=== PATIENT | male | born 1980 | race Caucasian/White ===

== ENCOUNTER 2019-05-26 12:11 | Emergency (ER) | payer SELFPAY ==
[2019-05-26 12:16] VITALS: BMI 22.1
--- NOTE | 2019-05-26 12:16 | ED_ITS ---
HPI - Psych General: Chief Complaint: Psychiatric Symptoms Stated Complaint: SI Time Seen by Provider: 05/26/19 12:14 Source: patient Mode of arrival: other (police) Limitations: no limitations History of Present Illness: HPI Narrative: Patient is a 38-year-old male who presents to ED today in police custody after making suicidal statements. Patient was in court due to contempt of court and apparently became upset and made statements that he wanted to go home and blow his head off . Upon arrival patient tells me he is not suicidal and made those statements in anger. He reports no previous suicide attempts. He denies homicidal ideations. Denies hallucinations. MD complaint: suicidal ideation Onset (ago): hour(s) Duration: resolved prior to arrival History of same: No Relieving factors: none Exacerbating factors: other (angry in court) Associated psychiatric symptoms: none Associated symptoms: Reports no associated symptoms; Deny auditory hallucinations, visual hallucinations, depression, homicidal ideation or suicidal ideation Treatments prior to arrival: none Review of Systems Const: Denies: fever or chills Card: Denies: chest pain, palpitations, lightheadedness or syncope Resp: Denies: shortness of breath GI: Denies: abdominal pain, nausea, vomiting or diarrhea Skin/Breast: Denies: rash Neuro: Denies: headache Psych: Denies: anxiety, depression, panic attacks, hopelessness, loss of interest, visual hallucinations, auditory hallucinations, suicidal ideation or homicidal ideation [facility] ED PFSH: Social History Smoking and tobacco status: current every day smoker Physical Exam Const: COMMON NORMALS: no apparent distress, oriented x3, alert and well nourished GENERAL APPEARANCE: cooperative and well kempt Resp: COMMON NORMALS: normal respiratory effort and clear to auscultation bilaterally AUSCULTATION: clear to auscultation bilaterally Cardio: COMMON NORMALS: regular rate and regular rhythm RATE: regular rate RHYTHM: regular rhythm Neuro: [place] COMA SCALE: document GCS findings [place] coma scale eye opening: Spontaneous [place] coma scale verbal response: Orientated [place] coma scale motor response: Obey commands [place] coma scale total score: 15 COMMON NORMALS: oriented x3 SENSORIUM/ORIENTATION: Yes alert Psych: COMMON NORMALS: mental status grossly normal, thought process normal, cooperative (slightly agitated ), affect normal, speech normal and activity/motor behavior normal APPEARANCE: Yes well kempt ACTIVITY/MOTOR BEHAVIOR: Yes appropriate eye contact and No psychomotor agitation SPEECH: Yes normal speech THOUGHT PROCESS: normal thought process MEMORY/COGNITION: Yes memory grossly intact and Yes cognition grossly intact INSIGHT: insight good JUDGEMENT: fair MDM - Psych MDM Narrative: Medical decision making narrative: Dr. Walls evaluated patient in the emergency department and agrees that patient is not suicidal and is stable for discharge. Lab Data: Labs: Lab Results 05/26/19 05/26/19 Range/Units 12:40 12:40 WBC 5.5 (4.0-10.0) 10^3/ uL RBC 5.18 (4.1-5.3) 10^6/u L Hgb 15.0 (11.7-16.6) g/dL Hct 45.2 (42.0-52.0) % MCV 87.3 (80-94) fL MCH 29.0 (28.0-34.0) pg MCHC 33.2 (30.0-36.0) g/dL RDW 12.7 (12.1-15.1) % Plt Count 292 (130-400) 10^3/c mm MPV 8.9 (7.4-10.4) fL Neut % (Auto) 59.3 % Lymph % (Auto) 28.6 % [place] % (Auto) 7.8 % Eos % (Auto) 2.7 % Baso % (Auto) 1.4 % Neut # (Auto) 3.3 (1.8-7.7) 10^3/u L Lymph # (Auto) 1.6 (0.8-4.8) 10^3/u L [place] # (Auto) 0.4 (0.2-0.9) 10^3/u L Eos # (Auto) 0.2 (0.0-0.8) 10^3/u L Baso # (Auto) 0.1 (0.0-0.1) 10^3/u L Nucleated RBC % (a uto) 0 % Nucleated RBCs # 0.0 /100WBC Sodium 133 L (136-145) mmol/L Potassium 4.5 (3.5-5.1) mmol/L Chloride 98 (98-107) mmol/L Carbon Dioxide 25 (22-29) mmol/L Anion Gap 14.5 (5-19) BUN 13 (6-20) mg/dL Creatinine 0.8 (0.7-1.2) mg/dL GFR Calculation 108.8 (90-130) mL/min Glucose 91 (65-115) mg/dL Calcium 9.9 (8.5-10.5) mg/dL Total Bilirubin 0.6 (0.15-1.2) mg/dL AST 23 (0-40) U/L ALT 16 (0-41) U/L Alkaline Phosphata se 73 (40-130) IU/L Total Protein 7.1 (6.6-8.7) g/dL Albumin 4.6 (3.5-5.2) g/dL Globulin 2.5 (1.3-4.6) g/dL Discharge Plan Discharge Patient Disposition: Home, Self-Care Clinical Impression: Agitation Condition: Stable Prescriptions: No Action No Known Home Medications RF: 0 Discharge Orders: Discharge Order (Routine); Ordered 05/26/19 Ordered By: Stephenie Garcia Discharge Diet: Usual diet Discharge Activity: Resume usual activity Discharge Date/Time: 05/26/19 13:14 Coding Level of Care Code ED Asset Specialist for Chg Fwd Exam Detailed
[2019-05-26 12:28] VITALS: BP 93/77; PULSE 90; RESP 20; TEMP 36.7; O2SAT 98
[2019-05-26 12:50] LABS: Basophils # 0.1 10^3/uL (0.0-0.1); Basophils % 1.4 %; Eosinophils # 0.2 10^3/uL (0.0-0.8); Eosinophils % 2.7 %; Hematocrit 45.2 % (42.0-52.0); Lymphocytes # 1.6 10^3/uL (0.8-4.8); Lymphocytes % 28.6 %; Mean Corpuscular HGB Conc 33.2 g/dL (30.0-36.0); Mean Corpuscular Volume 87.3 fL (80-94); Mean Platelet Volume 8.9 fL (7.4-10.4); Monocytes # 0.4 10^3/uL (0.2-0.9); Monocytes % 7.8 %; Neutrophils # 3.3 10^3/uL (1.8-7.7); Neutrophils % 59.3 %; Nucleated Red Blood Cells % 0 %; Platelet Count 292 10^3/cmm (130-400); Red Blood Count 5.18 10^6/uL (4.1-5.3); Red Cell Distribution Width 12.7 % (12.1-15.1); White Blood Count 5.5 10^3/uL (4.0-10.0)
[2019-05-26 13:03] LABS: Alanine Aminotransferase 16 U/L (0-41); Albumin Level 4.6 g/dL (3.5-5.2); Alkaline Phosphatase 73 IU/L (40-130); Anion Gap 14.5 (5-19); Aspartate Amino Transferase 23 U/L (0-40); Blood Urea Nitrogen 13 mg/dL (6-20); Calcium 9.9 mg/dL (8.5-10.5); Carbon Dioxide 25 mmol/L (22-29); Chloride 98 mmol/L (98-107); Globulin 2.5 g/dL (1.3-4.6); Glomerular Filtration Rate 108.8 mL/min (90-130); Glucose 91 mg/dL (65-115); Potassium 4.5 mmol/L (3.5-5.1); Sodium 133 mmol/L (136-145); Total Bilirubin 0.6 mg/dL (0.15-1.2); Total Protein 7.1 g/dL (6.6-8.7)
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
[2019-05-26 13:44] LABS: Acetaminophen < 5.0 ug/mL (10-30); Alcohol Level < 10 mg/dL (0-10); Salicylate < 0.3 mg/dL (3-10)
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
== END 2019-05-26 13:14 | disposition home or self-care (01) ==
PROVIDERS: Emergency Provider Physician Assistant
DX: R45.1 Restlessness and agitation (principal); F17.200 Nicotine dependence, unspecified, uncomplicated; R40.2412 Glasgow coma scale score 13-15, at arrival to emergency department
CPT/HCPCS: 12345; 36415; 80053; 80307; 85025; 99284

== ENCOUNTER 2019-09-09 16:25 | Emergency (ER) | payer SELFPAY ==
[2019-09-09 16:28] VITALS: BP 95/70; PULSE 74; RESP 18; TEMP 36.7; O2SAT 97; BMI 22.1
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
[2019-09-09 16:36] VITALS: PULSE 69; RESP 18; O2SAT 97
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
[2019-09-09 16:46] VITALS: RESP 20; O2SAT 99
[2019-09-09] MEDS: morphine 4 mg/mL SDV 1 mL IVP ×2 (16:46→17:39)
[2019-09-09] MEDS: ondansetron 2 mg/ML SDV 2 mL 4 MG IVP (16:46)
[2019-09-09] MEDS: sodium chloride 0.9% 1,000 ML 999 ML IV (17:16)
[2019-09-09 17:39] VITALS: RESP 18; O2SAT 100
[2019-09-09] MEDS: ketorolac 30 mg/mL INJ 15 MG IVP (17:39)
[2019-09-09] MEDS: neomycin-poly-bacitracin oint 0.9 gm Pkt 3 APPLIC TOPICAL (17:40)
[2019-09-09 18:07] VITALS: BP 107/76; PULSE 73; RESP 16; O2SAT 100
--- NOTE | 2019-09-12 11:57 | DCPLANNER ---
janitorial account manager had message to schedule a follow up appointment for patient with ortho. janitorial account manager called the ortho clinic, spoke with Lizy, gave clinic patients information. janitorial account manager was told that patients information would be printed and reviewed. Clinic will call case work aide and patient with appointment information.
--- NOTE | 2019-09-20 10:23 | DCPLANNER ---
Patient had an appointment scheduled with ortho for 09.15.19, patient did not attend the appointment.
== END 2019-09-09 18:07 | disposition home or self-care (01) ==
PROVIDERS: Emergency Provider Emergency Medicine
DX: S43.401A Unspecified sprain of right shoulder joint, initial encounter (principal); T14.8XXA Other injury of unspecified body region, initial encounter; V86.56XA Driver of dirt bike or motor/cross bike injured in nontraffic accident, initial encounter; F17.210 Nicotine dependence, cigarettes, uncomplicated
CPT/HCPCS: 12345; 71045; 73060; 73502; 96374; 96375; 96376; 99282; 99284; J1885; J2270; J2405; J7030

== ENCOUNTER 2019-12-16 23:13 | Emergency (ER) | payer SELFPAY ==
[2019-12-16 23:21] VITALS: BP 124/75; PULSE 92; RESP 20; TEMP 36.7; O2SAT 98; BMI 22.8
[2019-12-16 23:35] VITALS: BP 94/59; PULSE 88; RESP 17; O2SAT 95
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
[2019-12-16 23:44] VITALS: RESP 16
[2019-12-16] MEDS: morphine 4 mg/mL SDV 1 mL IVP (23:44)
[2019-12-16] MEDS: ondansetron 2 mg/ML SDV 2 mL 4 MG IVP (23:45)
[2019-12-16] MEDS: haloperidol inj 5 mg/mL INJ 1 mL IVP (23:56)
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
[2019-12-17 00:02] LABS: Basophils # 0.1 10^3/uL (0.0-0.1); Basophils % 1.1 %; Eosinophils # 0.2 10^3/uL (0.0-0.8); Eosinophils % 3.5 %; Hematocrit 45.7 % (42.0-52.0); Hemoglobin 15.3 g/dL (11.7-16.6); Lymphocytes # 1.9 10^3/uL (0.8-4.8); Lymphocytes % 28.1 %; Mean Corpuscular HGB Conc 33.5 g/dL (30.0-36.0); Mean Corpuscular Hemoglobin 30.7 pg (28.0-34.0); Mean Corpuscular Volume 91.6 fL (80-94); Monocytes # 0.6 10^3/uL (0.2-0.9); Monocytes % 9.3 %; Neutrophils # 3.81 10^3/uL (1.8-7.7); Neutrophils % 57.7 %; Nucleated Red Blood Cells % 0 %; Platelet Count 274 10^3/cmm (130-400); Red Blood Count 4.99 10^6/uL (4.1-5.3); Red Cell Distribution Width 13.1 % (12.1-15.1); White Blood Count 6.6 10^3/uL (4.0-10.0)
--- NOTE | 2019-12-17 00:04 | PC.NURSE ---
pt appears to be altered. admitted to MD that he had been drinking. pt id restless and easliy aggitated.
[2019-12-17] MEDS: haloperidol inj 5 mg/mL INJ 1 mL 2.5 MG IVP (00:09)
[2019-12-17 00:11] VITALS: BP 122/80; PULSE 82; RESP 14; O2SAT 94
[2019-12-17 00:21] LABS: Alanine Aminotransferase 16 U/L (0-41); Albumin Level 4.7 g/dL (3.5-5.2); Alkaline Phosphatase 92 IU/L (40-130); Anion Gap 15.9 (5-19); Aspartate Amino Transferase 22 U/L (0-40); Blood Urea Nitrogen 13 mg/dL (6-20); Calcium 8.7 mg/dL (8.5-10.5); Carbon Dioxide 26 mmol/L (22-29); Chloride 104 mmol/L (98-107); Globulin 2.3 g/dL (1.3-4.6); Glomerular Filtration Rate 108.2 mL/min (90-130); Glucose 116 mg/dL (65-115); Osmolality Calculated 291 mOsm/kg (285-295); Potassium 3.9 mmol/L (3.5-5.1); Sodium 142 mmol/L (136-145); Total Bilirubin 0.2 mg/dL (0.15-1.2)
[2019-12-17] MEDS: sodium chloride 0.9% 1,000 ML 999 ML IV (04:30)
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
[2019-12-17] MEDS: atropine 0.1 mg/mL Syr 10 mL 0.5 MG IVP (04:50)
--- NOTE | 2019-12-17 04:54 | ECG_ITS ---
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 Measurements Intervals [place] Rate: 72 P: 85 RI: 135 QRS: 81 QRSD: 97 T: 68 QT: 368 QTc: 404 Interpretive Statements SINUS RHYTHM INDETERMINATE AXIS INCOMPLETE RIGHT BUNDLE BRANCH BLOCK [90+ ms QRS DURATION, TERMINAL R IN V1/V2, 40+ ms S IN I/aVL/V4/V5/V6] Compared to ECG 12/02/2017 21:07:29 Indeterminate axis now present Incomplete right bundle-branch block now present Sinus bradycardia no longer present Electronically Signed On 12-17-2019 16:21:10 CDT by Joya Holley M.D. [id number]
[2019-12-17 05:29] VITALS: BP 114/90; PULSE 57; RESP 13; O2SAT 99
[2019-12-17 05:41] LABS: Alcohol Level 186 mg/dL (0-10)
[2019-12-17 05:59] VITALS: BP 104/78; PULSE 60; RESP 13; O2SAT 99
[2019-12-17 06:29] VITALS: BP 109/74; PULSE 74; RESP 14; O2SAT 98
[2019-12-17 06:45] VITALS: BP 109/74; O2SAT 94
== END 2019-12-17 06:46 | disposition home or self-care (01) ==
PROVIDERS: Emergency Medicine; Emergency Provider Family Medicine
DX: S12.390A Other displaced fracture of fourth cervical vertebra, initial encounter for closed fracture (principal); F10.129 Alcohol abuse with intoxication, unspecified; Y90.6 Blood alcohol level of 120-199 mg/100 ml; F17.210 Nicotine dependence, cigarettes, uncomplicated; V29.9XXA Motorcycle rider (driver) (passenger) injured in unspecified traffic accident, initial encounter
CPT/HCPCS: 12345; 70450; 70486; 71260; 72125; 72128; 72131; 73030; 74177; 80053; 80307; 85025; 93005; 96361; 96374; 96375; 99283; 99284; J0131; J0461; J1630; J2270; J2405; J7030; Q9967

== ENCOUNTER 2020-04-03 01:53 | Emergency (ER) | payer SELFPAY ==
[2020-04-03 01:59] VITALS: BP 133/80; PULSE 97; RESP 18; TEMP 36.8; O2SAT 99; BMI 21.4
--- NOTE | 2020-04-03 03:30 | XR_ITS ---
WS: [id number] Comparison 08/25/2014. No acute fracture or dislocation. Old fracture deformity of the fifth metacarpal. No soft tissue fore ign bodies are seen. XR/XR hand RT min 3V* [id number] IMPRESSION: 1. No acute fracture or dislocation.
[2020-04-03] MEDS: HYDROcodone-acetaminophen 5-325 mg Tablet 1 TAB PO (03:40)
--- NOTE | 2020-04-03 03:59 | W.ED.SKABFB ---
HPI - Skin/Abscess/Foreign Bdy General: Chief complaint: Skin/Abscess/Foreign Body Stated complaint: swollen rt hand Time Seen by Provider: 04/03/20 03:16 Source: patient Mode of arrival: ambulatory Limitations: no limitations History of Present Illness: HPI narrative: 39-year-old male states he said pain to his right hand over the last day. He states he noticed his source last abscess to the dorsum of his right hand. States pain is sharp in nature and rates it a 7 out of 10. Denies any injuries. He has had abscesses in the past. Denies any fever. Associated symptoms: Deny chills, fever(s), nausea or vomiting Review of Systems Const: Denies: fever(s), chills, body aches or change in appetite Eyes: Denies: blurry vision or eye discomfort ENMT: Denies: throat pain or dental pain Card: Denies: chest pain Resp: Denies: dyspnea GI: Denies: abdominal pain, nausea, vomiting or diarrhea : Denies: dysuria Musc: Reports: extremity pain; Denies: neck pain or back pain Skin/Breast: Reports: sores Neuro: Denies: headache(s) Psych: Denies: depression Fausto/Lymph: Denies: easy bruising All/Imm: Denies: urticaria PFSH ED PFSH: Medical History (Updated 04/03/20 @ 03:59 by Tobias Mills MD) No pertinent past medical history Surgical History No pertinent past surgical history Social History Smoking and tobacco status: current every day smoker Physical Exam Const: COMMON NORMALS: no acute distress, patient oriented x3 and healthy appearing HENMT: COMMON NORMALS: normocephalic and atraumatic HEAD & SCALP: normocephalic and atraumatic Eye: COMMON NORMALS: Equal, round and reactive pupils present and EOMs intact bilaterally PUPIL: Yes Equal, round and reactive pupils present Neck/C-Spine: COMMON NORMALS: full ROM and supple Chest: COMMONS NORMALS: normal inspection of the chest and normal palpation of entire chest wall Resp: COMMON NORMALS: normal respiratory effort, No retractions, No use of accessory muscles and clear to auscultation bilaterally AUSCULTATION: clear to auscultation bilaterally Cardio: COMMON NORMALS: regular rate, regular rhythm and No murmurs present (Cardio) RATE: regular rate RHYTHM: regular rhythm GI: COMMON NORMALS: Normal to inspection, nondistended, normoactive bowel sounds present, Soft to palpation, non-tender and no masses PALPATION: Yes Soft to palpation Extremity: COMMON NORMALS: normal to inspection and full ROM Neuro: COMMON NORMALS: patient oriented x3, moves all extremities and no focal motor deficits Psych: COMMON NORMALS: mental status grossly normal, Normal thought process present and cooperative THOUGHT PROCESS: Normal thought process present Skin: NARRATIVE SKIN EXAM: Small abscess over the ulnar portion of the dorsum of the right hand minimal cellulitis Procedures Abscess I/D Site: hand Side (if applicable): right Local Anesthetic: lidocaine 1% Amount of anesthesia used (mL): 5 Technique: incised with #11 blade Packing used?: none Course Vital Signs: Vital signs: Vital Signs Temperature 98.2 F 04/03/20 01:59 Pulse Rate 97 04/03/20 01:59 Respiratory Rate 18 04/03/20 01:59 Blood Pressure 133/80 04/03/20 01:59 Pulse Oximetry 99 04/03/20 01:59 MDM - Skin/Abscess/Foreign Bdy MDM Narrative: Medical decision making narrative: Patient presents here with an abscess to the dorsum of his right hand. He has no signs of severe cellulitis or fever. X-ray shows no fracture. Incise and drain the abscess and placed him on Keflex and Bactrim. He is to return in 24 hours for wound check and return if any worsening. He understands agrees to plan. Imaging Data^: X-ray right hand: Attestation: I personally reviewed and interpreted this imaging study as follows: My impression: No acute fracture Discharge Plan Discharge Patient Disposition: Home Clinical Impression: Abscess of skin or subcutaneous tissue Qualifiers: Site of cutaneous abscess: extremity Site of cutaneous abscess of extremity: hand Laterality: right Qualified Code(s): L02.511 - Cutaneous abscess of right hand Condition: Stable Prescriptions: [place] 5-325 mg tablet 1 tab PO Q6H PRN (Reason: pain) Qty: 14 RF: 0 Bactrim DS 800-160 mg tablet 1 tab PO BID 10 Days Qty: 20 RF: 0 Keflex 500 mg capsule 500 mg PO Q6H 7 Days Qty: 28 RF: 0 No Action hydrocodone-acetaminophen 5-325 mg tablet 1 tab PO Q6H PRN (Reason: pain) Qty: 14 RF: 0 hydrocodone-acetaminophen 5-325 mg tablet 1 tab PO Q6H PRN (Reason: pain) Qty: 14 RF: 0 Discharge Orders: Discharge ED (Routine); Ordered 04/03/20 Ordered By: Tobias Mills Discharge Diet: Advance as tolerated Discharge Activity: Resume usual activity Patient Instructions: Abscess (ED) Coding Level of Care Code ED Paper Sales Representative for Marietta Cobb
[2020-04-03 04:13] VITALS: BP 132/78; PULSE 88; RESP 16; O2SAT 98
--- NOTE | 2020-04-03 04:15 | PC.NURSE ---
Placed telfa small to right hand to incision that dr made to allow for drainage. Wrapped hand with kerlex 2 inch all smcs intact prior and post procedure.
[2020-04-03] MEDS: cephALEXin 500 mg Capsule PO (04:18)
[2020-04-03] MEDS: sulfamethoxazole-trimeth DS 160-800 mg Tablet 1 TAB PO (04:18)
== END 2020-04-03 04:19 | disposition home or self-care (01) ==
PROVIDERS: Emergency Provider Emergency Medicine
DX: L02.511 Cutaneous abscess of right hand (principal); F17.210 Nicotine dependence, cigarettes, uncomplicated
CPT/HCPCS: 10060; 12345; 73130; 99281; 99283

== ENCOUNTER 2020-09-15 04:25 | Inpatient (IN) | payer SELFPAY ==
[2020-09-15 04:26] VITALS: BP 112/72; PULSE 85; RESP 24; TEMP 36.1; O2SAT 100; BMI 22.1
--- NOTE | 2020-09-15 04:29 | ED_ITS ---
HPI - Alcohol General: Chief Complaint: Alcohol Stated Complaint: Alcohol Intoxication Time Seen by Provider: 09/15/20 04:28 Source: EMS Mode of arrival: EMS Limitations: altered mental status History of Present Illness: HPI narrative: 40-year-old male admitted to EMS of drinking very heavily tonight and was found by police slumped over in his vehicle. They called EMS due to his intoxication. Patient here is very intoxicated and he will awake but he will not answer any my questions. He has not made any homicidal or suicidal statements. Unable to get any history from patient. MD complaint: alcohol intoxication Review of Systems General: Reports: ROS unobtainable due to mental status [facility] ED PFSH: Medical History (Updated 09/15/20 @ 05:16 by Tobias Mills MD) No pertinent past medical history Surgical History No pertinent past surgical history Social History Smoking and tobacco status: current every day smoker Physical Exam Const: COMMON NORMALS: negative for patient oriented x3 GENERAL APPEARANCE: disheveled and odor of alcohol detected HENMT: COMMON NORMALS: normocephalic and atraumatic HEAD & SCALP: normocephalic and atraumatic Eye: COMMON NORMALS: Equal, round and reactive pupils present and EOMs intact bilaterally PUPIL: Yes Equal, round and reactive pupils present Neck/C-Spine: COMMON NORMALS: full ROM and supple Chest: COMMONS NORMALS: normal inspection of the chest and normal palpation of entire chest wall Resp: COMMON NORMALS: normal respiratory effort, No retractions, No use of accessory muscles and clear to auscultation bilaterally AUSCULTATION: clear to auscultation bilaterally Cardio: COMMON NORMALS: regular rate, regular rhythm and No murmurs present (Cardio) RATE: regular rate RHYTHM: regular rhythm GI: COMMON NORMALS: Normal to inspection, nondistended, normoactive bowel sounds present, Soft to palpation, non-tender and no masses PALPATION: Yes Soft to palpation Extremity: COMMON NORMALS: normal to inspection and full ROM Neuro: COMMON NORMALS: moves all extremities and no focal motor deficits; negative for patient oriented x3 SENSORIUM/ORIENTATION: Yes Orientation impaired Psych: COMMON NORMALS: cooperative; negative for mental status grossly normal Skin: COMMON NORMALS: no rashes or lesions noted and no wounds GENERAL SKIN EXAM: no rashes or lesions noted Course Reevaluation(s): Reevaluation #1: After IV placement patient woke up analysis angry replaced IV and ripped his own IV out. He is denying any other treatment at this time. He is able to ambulate answer my questions appropriately. He now states that he also wants to kill himself. He states he is homeless and has nowhere to go and that he did go get his AR 15 and shoot himself. Be able to talk to him and de-escalate and have him calm down. He did throw a cup of water at a nursing please were called. But at this time he is calm and cooperative Time: 04:45 Vital Signs: Vital signs: Vital Signs Temperature 97.0 F L 09/15/20 04:26 Pulse Rate 85 09/15/20 04:26 Respiratory Rate 24 H 09/15/20 04:26 Blood Pressure 112/72 09/15/20 04:26 Pulse Oximetry 100 09/15/20 04:26 MDM - Alcohol MDM Narrative: Medical decision making narrative: Body presents here with alcohol intoxication likely drug abuse and suicidality. Patient was initially agitated here but he is now calm and cooperative after verbal de-escalation. Patient is medically cleared I placed him under 96-hour hold for suicidal statements. Spoke to psychiatrist and will admit. Lab Data: Labs: Lab Results 09/15/20 09/15/20 Range/Units 04:32 04:32 WBC 8.1 (4.0-10.0) 10^3/ uL RBC 4.87 (4.1-5.3) 10^6/u L Hgb 15.0 (11.7-16.6) g/dL Hct 43.7 (42.0-52.0) % MCV 89.7 (80-94) fL MCH 30.8 (28.0-34.0) pg MCHC 34.3 (30.0-36.0) g/dL RDW 12.8 (12.1-15.1) % Plt Count 267 (130-400) 10^3/c mm MPV 9.1 (7.4-10.4) fL Neut % (Auto) 66.9 % Lymph % (Auto) 24.4 % [place] % (Auto) 6.1 % Eos % (Auto) 0.7 % Baso % (Auto) 1.5 % Neut # (Auto) 5.44 (1.8-7.7) 10^3/u L Lymph # (Auto) 2.0 (0.8-4.8) 10^3/u L [facility] [place] # (Auto) 0.5 (0.2-0.9) 10^3/u L Eos # (Auto) 0.1 (0.0-0.8) 10^3/u L Baso # (Auto) 0.1 (0.0-0.1) 10^3/u L Nucleated RBC % (a uto) 0 % Nucleated RBCs # 0.0 /100WBC Sodium 142 (136-145) mmol/L Potassium 3.4 L (3.5-5.1) mmol/L Chloride 103 (98-107) mmol/L Carbon Dioxide 22 (22-29) mmol/L Anion Gap 20.4 H (5-19) BUN 13 (6-20) mg/dL Creatinine 0.8 (0.7-1.2) mg/dL GFR Calculation 107.6 (90-130) mL/min Glucose 120 H (65-115) mg/dL Calculated Osmolal ity 295 (285-295) mOsm/k g Calcium 8.6 (8.5-10.5) mg/dL Total Bilirubin 0.3 (0.15-1.2) mg/dL AST 22 (0-40) U/L ALT 19 (0-41) U/L Alkaline Phosphata se 78 (40-130) IU/L Total Protein 6.6 (6.6-8.7) g/dL Albumin 4.7 (3.5-5.2) g/dL Globulin 1.9 (1.3-4.6) g/dL Salicylates < 0.3 L (3-10) mg/dL Acetaminophen < 5.0 L (10-30) ug/mL Ethyl Alcohol 109 H (0-10) mg/dL Discharge Plan Discharge Patient Disposition: Admitted As Inpatient Admit Provider: Natalie Nielsen Clinical Impression: Alcoholic intoxication, Suicidal ideation Condition: Stable Coding Level of Care Code ED Compressed Gas Equipment Mechanic for g Fwd Exam Comprehensive
[2020-09-15] MEDS: sodium chloride 0.9% 1,000 ML 999 ML IV (04:36)
[2020-09-15 04:42] LABS: Basophils # 0.1 10^3/uL (0.0-0.1); Basophils % 1.5 %; Eosinophils # 0.1 10^3/uL (0.0-0.8); Eosinophils % 0.7 %; Hematocrit 43.7 % (42.0-52.0); Lymphocytes % 24.4 %; Mean Corpuscular HGB Conc 34.3 g/dL (30.0-36.0); Mean Corpuscular Hemoglobin 30.8 pg (28.0-34.0); Mean Corpuscular Volume 89.7 fL (80-94); Mean Platelet Volume 9.1 fL (7.4-10.4); Monocytes # 0.5 10^3/uL (0.2-0.9); Monocytes % 6.1 %; Neutrophils # 5.44 10^3/uL (1.8-7.7); Neutrophils % 66.9 %; Nucleated Red Blood Cells % 0 %; Platelet Count 267 10^3/cmm (130-400); Red Blood Count 4.87 10^6/uL (4.1-5.3); Red Cell Distribution Width 12.8 % (12.1-15.1); White Blood Count 8.1 10^3/uL (4.0-10.0)
[2020-09-15 05:08] LABS: Acetaminophen < 5.0 ug/mL (10-30); Alanine Aminotransferase 19 U/L (0-41); Albumin Level 4.7 g/dL (3.5-5.2); Alcohol Level 109 mg/dL (0-10); Alkaline Phosphatase 78 IU/L (40-130); Anion Gap 20.4 (5-19); Aspartate Amino Transferase 22 U/L (0-40); Blood Urea Nitrogen 13 mg/dL (6-20); Calcium 8.6 mg/dL (8.5-10.5); Carbon Dioxide 22 mmol/L (22-29); Chloride 103 mmol/L (98-107); Creatinine Clr Calc Pharmacy 122.1041; Globulin 1.9 g/dL (1.3-4.6); Glomerular Filtration Rate 107.6 mL/min (90-130); Glucose 120 mg/dL (65-115); Osmolality Calculated 295 mOsm/kg (285-295); Potassium 3.4 mmol/L (3.5-5.1); Salicylate < 0.3 mg/dL (3-10); Sodium 142 mmol/L (136-145); Total Bilirubin 0.3 mg/dL (0.15-1.2); Total Protein 6.6 g/dL (6.6-8.7)
[2020-09-15 06:26] VITALS: RESP 24; TEMP 36.1
[2020-09-15] MEDS: ondansetron 4 MG Tablet PO (09:49)
--- NOTE | 2020-09-15 11:47 | P.HP_ITS ---
Providers/Chief Complaint Admitting Physician: Natalie Nielsen DO Chief Complaint: MHE HPI NPU History of Present Illness Braulio Mosley is a 40 year old male with longstanding history of alcohol and methamphetamine abuse presented to the emergency department last evening by police after being found slumped over while intoxicated. Patient has multiple previous emergency department presentations in the context of methamphetamine and alcohol intoxication although it appears that he has refused urine drug sc reens on the past 3 encounters with the emergency department. Current urine drug screen pending for this encounter. Patient initially denied any homicidal or suicidal ideation and was not participating in evaluation although patient subsequently became physically and verbally agitated and yelled that he was going to shoot himself and had reportedly thrown a cup of water at it ED staff. Patient has a longstanding history of making threats about self-harm and harm to others when he becomes agitated and especially while intoxicated with substances and alcohol despite having no apparent history of suicide attempt or assaultive behavior. Patient currently lying in bed and refusing to pull his blanket down and participate in interview despite multiple requests. While attempting to gather psychiatric review of systems, patient became extremely agitated telling the interviewer to stop looking at him despite the patient facing the wall away from the interviewer and became extremely agitated and at one point gesture like he was going to get out of bed and come towards the interviewer. Ultimately, patient did not participate in interview. Review of Systems General: Reports: ROS unobtainable due to mental status Meds NPU Home Medications Medication Instructions Recorded Confirmed Last Taken Type No Known Home Medications 09/15/20 09/15/20 Unknown History Allergies Allergy/AdvReac Type Severity Reaction Status Date / Time tramadol Allergy ADR-Vomitin Verified 12/16/19 23:25 g PFSH NPU PFSH: Medical History (Updated 09/15/20 @ 11:55 by Natalie Nielsen DO) No pertinent past medical history Surgical History No pertinent past surgical history Social History Smoking and tobacco status: current every day smoker Other Psychiatric History: Other Psychiatric History: No apparent history of psychiatric treatment but multiple episodes of physical and verbal agitation in the context of substance and alcohol intoxication. Unclear if patient has previously participated in any substance/alcohol treatment/counseling. Mental Status Exam MSE Comments: Appears stated age, blanket pulled up over his head lying in his bed facing away from the interviewer, subsequently pulling back his blanket to yell at the interviewer and gesturing as if he is going to jump out of bed t oward the interviewer. Unable to fully assess multiple domains at this time secondary to lack of par ticipation, agitation. Vitals/I&O/Wt Last Vital Signs Temp 97.0 F L 09/15/20 06:26 Pulse 85 09/15/20 04:26 Resp 24 H 09/15/20 06:26 BP 112/72 09/15/20 04:26 Pulse Ox 100 09/15/20 04:26 09/14/20 09/15/20 09/15/20 22:59 06:59 14:59 Intake Total 1000 / 1000 Balance 1000 / 1000 Weight last 48 hrs Weight 68.039 kg Data NPU : 09/15/20 04:32 09/15/20 04:32 A&P Assessment and plan (1) Alcoholic intoxication: Status: Acute Qualifiers: Complication of substance-induced condition: uncomplicated Qualified Code(s): F10.920 - Alcohol use, unspecified with intoxication, uncomplicated (2) Substance intoxication: Status: Acute Qualifiers: Complication of substance-induced condition: uncomplicated Qualified Code(s): F19.920 - Other psychoactive substance use, unspecified with intoxication, uncomplicated (3) Suicidal ideation: Status: Acute Additional A&P Information Presented to the emergency department with alcohol intoxication and likely methamphetamine intoxication although patient refusing to participate in urine drug screen. Patient has longstanding history of alcohol and methamphetamine abuse in which she becomes extremely agitated physically and verbally. Patient initially not endorsing suicidal or homicidal ideation while in the emergency department but after interactions with staff patient abruptly made a suicidal statement as he has in the past when he becomes agitated. Patient has no known history of suicide attempt or self-harm behavior but appears to have made these statements in the past as a means to manipulate individuals around him. INVOLUNTARY ADMIT to inpatient psychiatry [facility], will observe for any signs of alcohol withdrawal and provide symptomatic care although patient currently refusing to participate in care Patient not participating in assessment but will reevaluate when patient is no longer physically and verbally agitated and threatening staff Coordinate with executive secretary social welfare for post discharge alcohol/substance treatment given patient's longstanding history of alcohol and substance abuse which appears to have caused past legal issues and significant impairment Involuntary Hold Information 96 Hour Hold: 96 Hour Involuntary Admission: Yes 96 Hour Hold Ending Date: 09/20/20 96 Hour Hold Ending Time: 05:15 Attestations NPU Medical Necessity Statement*: Patient currently on involuntary hold after making threats of harming himself and others, will provide symptomatic care for detox, coordinate for safe discharge Anticipate hospital stay to exceed 2 midnights Coding Level of Care Code Acute Sludge Control Operator for Marietta Cobb Diagnoses Alcoholic intoxication F10.920 Complication of substance-induced condition: uncomplicated Substance intoxication F19.920 Complication of substance-induced condition: uncomplicated Suicidal ideation R45.851
[2020-09-15 14:00] VITALS: RESP 24; TEMP 36.1
[2020-09-15] MEDS: multivitamin therapeutic Tablet 1 TAB PO (15:10)
[2020-09-15] MEDS: thiamine 100 mg Tablet PO (15:11)
[2020-09-15 16:07] VITALS: BP 90/53; PULSE 53; RESP 16; TEMP 36.6; O2SAT 99
[2020-09-15 19:49] VITALS: RESP 15
[2020-09-16 06:00] VITALS: RESP 16
[2020-09-16] MEDS: multivitamin therapeutic Tablet 1 TAB PO (08:30)
[2020-09-16] MEDS: thiamine 100 mg Tablet PO (08:30)
--- NOTE | 2020-09-16 12:33 | P.DS_ITS ---
Diagnoses at Discharge Discharge Diagnosis (1) Methamphetamine abuse: Status: Acute (2) Alcohol abuse: Status: Acute Reason for Visit Reason for Visit: E Hospital Course Hospital Course 40 year old male with longstanding history of alcohol and methamphetamine abuse presented to the emergency department last evening by police after being found slumped over while intoxicated. Patient has multiple previous emergency department presentations in the context of methamphetamine and alcohol intoxication although it appears that he has refused urine drug screens on the past 3 encounters with the emergency department. Current urine drug screen pending for this encounter. Patient initially denied any homicidal or suicidal ideation and was not participating in evaluation although patient subsequently became physically and verbally agitated and yelled that he was going to shoot himself and had reportedly thrown a cup of water at it ED staff. Patient has a longstanding history of making threats about self-harm and harm to others when he becomes agitated and especially while intoxicated with substances and alcohol despite having no apparent history of suicide attempt or assaultive behavior. On follow-up evaluation, patient was lying comfortably on top of his bed with his blanket pulled down resting with nurse report that the patient had been getting up for meals with no events but otherwise refusing any additional evaluation. Patient refused to participate in psychiatric evaluation although he did report no interval suicidal ideation stating that he had been sleeping. When trying to get additional information about any other psychiatric symptoms, he became agitated rolling over stating that he wasn't going to answer any F- ing questions and to get the F out of the room. Patient states that he has no interest in participating in care and stating that he did not have any interest in follow-up substance counseling or treatment stating go ahead and F- ing discharge me. He then got up out of his bed and started slamming the bathroom door and hitting the mendoza. Patient will continue to be an intermittent elevated risk given his refusal to participate in care when he has been hospitalized with repeated emergency department visits related to his use of alcohol and substance use which leads to unexpected and impulsive behavior which cannot be mitigated by psychiatric hospitalization with the patient refusing care and refusing necessary follow-up substance counseling/treatment. Despite repeated past statements of hurting himself or others, patient has not demonstrated any self-harm behavior or gestures or assaultive behavior but patient may become disinhibited with his ongoing use of substances and alcohol. Patient refuses to communicate his understanding of the above recommendation to abstain from the use of substances and alcohol as well as the need for follow-up substance counseling/treatment in order to further mitigate his risk of harm to self and others. Involuntary Hold Information 96 Hour Hold: 96 Hour Involuntary Admission: Yes 96 Hour Hold Ending Date: 09/20/20 96 Hour Hold Ending Time: 05:15 Mental Status Exam MSE Comments: Initially lying in bed with his blanket pulled down with his eyes open, subsequently rolling over with his blanket pulled up making occasional statements but refusing to participate in interview. He eventually jumped up out of bed yelling and going into the bathroom slamming the door and yelling while hitting the mendoza. Discharge Data Data Completed and Pending: Pending at discharge Category Date Time Status Drug Screen, Urin e Routine Lab 09/15/20 10:45 Uncollected Drug Screen, Urin e Stat Lab 09/15/20 04:50 Uncollected Vitals: Last Vital Signs Temp 97.8 F 09/15/20 16:07 Pulse 53 L 09/15/20 16:07 Resp 16 09/16/20 06:00 BP 90/53 09/15/20 16:07 Pulse Ox 99 09/15/20 16:07 Discharge Plan Discharge Patient Disposition: Home Condition: Stable Prescriptions: New thiamine mononitrate (vit B1) [Vitamin B-1 (mononitrate)] 100 mg Tablet 100 mg PO DAILY Qty: 30 RF: 0 No Action No Known Home Medications RF: 0 Discharge Orders: Discharge Order (Routine); Ordered 09/16/20 Ordered By: Natalie Nielsen Discharge Diet: Regular Discharge Activity: Resume usual activity Patient Instructions: Opioid Safety Discharge Attestations NPU Time Spent in Discharge Care*: less than 30 min Status at Discharge: Cognitive status at discharge: cognitively intact , Behavioral status at discharge: can be uncooperative , Functional status at discharge: independent ambulation Overall status at discharge: patient is progressing back to baseline Coding Level of Care Code Acute Chg FW DC note Diagnoses Methamphetamine abuse F15.10 Alcohol abuse F10.10
[2020-09-16 12:48] VITALS: RESP 16
--- NOTE | 2020-09-17 18:09 | PC.RESP ---
SMOKING CESSATION INFORMATION SENT TO PATIENT.
== END 2020-09-16 12:57 | disposition home or self-care (01) | DRG 897 ==
LOC: ER 05:16 → NP 05:37
PROVIDERS: Admitting Provider Psychiatry & Neurology Psychiatry; Emergency Provider Emergency Medicine; Visit Provider Psychiatry & Neurology Psychiatry
DX: F10.129 Alcohol abuse with intoxication, unspecified (principal); R45.851 Suicidal ideations; F15.10 Other stimulant abuse, uncomplicated
CPT/HCPCS: 80053; 80307; 85025; 99285; J7030; Q0162

== ENCOUNTER 2020-12-20 20:19 | Emergency (ER) | payer SELFPAY ==
[2020-12-20 20:49] VITALS: BP 112/74; PULSE 90; RESP 18; TEMP 36.8; O2SAT 98; BMI 22.1
--- NOTE | 2020-12-20 21:03 | ED_ITS ---
HPI - Eye Problem General: Chief complaint: Eye Problems Stated complaint: possble metal in eye Time Seen by Provider: 12/20/20 20:55 History of Present Illness: HPI Narrative: Patient comes in with foreign body to the right eyelid. 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 On Thursday he was looking in the mirror and noticed it and tried to get it out. Patient comes in today for continued complaints. Patient appears well. Patient appears no acute distress. Review of Systems General: Reports: 10 or more systems reviewed and unremarkable except in HPI and below Eyes: Reports: other (Foreign body right eye) [facility] ED PFSH: Medical History (Updated 12/20/20 @ 21:28 by MILES Castro) No pertinent past medical history Surgical History (Updated 09/17/20 @ 00:01 by ) No pertinent past surgical history Social History Smoking and tobacco status: current every day smoker Physical Exam Const: COMMON NORMALS: no acute distress and patient oriented x3 GENERAL APPEARANCE: cooperative HENMT: COMMON NORMALS: normocephalic and Normal external nose present HEAD & SCALP: normal to inspection and normocephalic NOSE: Normal external nose present Eye: VISUAL ACUITY: Yes acuity normal PERIORBITAL: periorbital findings normal CORNEA: Yes other (Brown alejandra of material noted to the cornea at the 9 o'clock position at th) Neck/C-Spine: COMMON NORMALS: full ROM Chest: COMMONS NORMALS: normal inspection of the chest Resp: COMMON NORMALS: normal respiratory effort EFFORT & INSPECTION: Yes able to speak in complete sentences Cardio: COMMON NORMALS: regular rate and regular rhythm RATE: regular rate RHYTHM: regular rhythm GI: COMMON NORMALS: non-tender Extremity: COMMON NORMALS: normal to inspection Neuro: COMMON NORMALS: patient oriented x3 and moves all extremities Psych: COMMON NORMALS: mental status grossly normal and cooperative Skin: COMMON NORMALS: no rashes or lesions noted GENERAL SKIN EXAM: no rashes or lesions noted Procedures FB Removal Eye Location: eye (R) Topical anesthetic used: tetracaine Foreign body: metal Evidence of corneal penetration: No Technique: needle Procedure performed under: direct visualization with magnification Post-procedure medication: ophthalmic antibiotic Patient tolerated procedure: well Course Vital Signs: Vital signs: Vital Signs Temperature 98.2 F 12/20/20 21:11 Pulse Rate 84 12/20/20 21:11 Respiratory Rate 16 12/20/20 21:11 Blood Pressure 114/63 12/20/20 21:11 Pulse Oximetry 98 12/20/20 21:11 MDM - Eye Problem MDM Narrative: Medical decision making narrative: 40-year-old male patient comes in for foreign body in his eye since Thursday. On exam we noted a alejandra of brown material noted to the 9 o'clock position at the edge of the iris. Most likely this is a piece of metal. Differential diagnosis corneal laceration, corneal abrasion, corneal ulceration. Under tetracaine for anesthesia a 22- gauge needle was used and removed the alejandra of material no residual rust ring was noted. Patient was given erythromycin ophthalmic ointment to continue 3 times a day for the next 5 days. Patient reported understanding of care plan and need for follow-up or return to the ER. Discharge Plan Discharge Patient Disposition: Home Clinical Impression: Acute foreign body of cornea Qualifiers: Encounter type: initial encounter Laterality: right Qualified Code(s): T15.01XA - Foreign body in cornea, right eye, initial encounter Condition: Stable Prescriptions: No Action Vitamin B-1 (mononitrate) 100 mg Tablet 100 mg PO DAILY Qty: 30 RF: 0 Discharge Orders: Discharge ED (Routine); Ordered 12/20/20 Ordered By: Tereso Nunez Discharge Diet: Usual diet Discharge Activity: Increase activity as tolerated Patient Instructions: Eye Foreign Body (ED), Opioid Safety Activity Restrictions/Additional Instructions: Use antibiotic ointment 3 times a day for the next 5 days to the right eye. Follow-up with eye healthcare advisory services manager in 3 days as needed for continued complaint. Return to the ER for new concerns. Coding Level of Care Code ED Refinish Technician for Marietta Cobb
[2020-12-20 21:11] VITALS: BP 114/63; PULSE 84; RESP 16; TEMP 36.8; O2SAT 98
[2020-12-20] MEDS: erythromycin Op Oint 1 gm 1 APPLIC EYE-RIGHT (21:18)
[2020-12-20] MEDS: fluorescein 1 mg Strip EYE-RIGHT (21:18)
[2020-12-20] MEDS: tetracaine 0.5% Op Soln 4 mL Btl 1 DROP EYE-RIGHT (21:19)
[2020-12-20 21:29] VITALS: BP 117/69; PULSE 93; RESP 16; TEMP 36.8; O2SAT 97
== END 2020-12-20 21:31 | disposition home or self-care (01) ==
PROVIDERS: Emergency Provider Nurse Practitioner Family
DX: T15.01XA Foreign body in cornea, right eye, initial encounter (principal); F17.210 Nicotine dependence, cigarettes, uncomplicated; X58.XXXA Exposure to other specified factors, initial encounter
CPT/HCPCS: 99283

== ENCOUNTER 2022-02-18 18:37 | Emergency (ER) | payer MEDICAID, SELFPAY ==
[2022-02-18 18:49] VITALS: BP 122/71; PULSE 95; RESP 16; TEMP 36.6; O2SAT 95
--- NOTE | 2022-02-18 19:36 | W.ED.GENADLT ---
HPI - General Adult General: Chief complaint: General Medical Stated complaint: sore throat Time Seen by Provider: 02/18/22 19:30 History of Present Illness: Patient is in today for sore throat x2 days. He reports that his throat has been sore and he has had headache. He reports some fever off and on for 2 days. He reports that his daughter did have a sore throat about a week ago and she does share drinks with him. He thinks that he has strep throat. He denies nasal congestion or drainage however he is sniffing during exam. Associated symptoms: Deny chest pain, dyspnea, nausea, palpitations or vomiting Review of Systems Const: Reports: fever(s) and chills ENMT: Reports: throat pain Card: Denies: chest pain or palpitations Resp: Denies: dyspnea or non-productive cough GI: Denies: abdominal pain, nausea or vomiting [facility] ED PFSH: Medical History (Updated 02/18/22 @ 19:47 by NORMA Jolly) No pertinent past medical history Surgical History No pertinent past surgical history Social History Smoking and tobacco status: current every day smoker Physical Exam Const: COMMON NORMALS: no acute distress, patient oriented x3 and alert HENMT: COMMON NORMALS: TM's normal bilaterally NOSE: Nasal discharge present clear TYMPANIC MEMBRANE: TM's normal bilaterally THROAT: uvula midline and abnormal tonsil bilateral erythema and exudates Neck/C-Spine: COMMON NORMALS: no JVD Resp: COMMON NORMALS: normal respiratory effort, No use of accessory muscles and clear to auscultation bilaterally AUSCULTATION: clear to auscultation bilaterally Cardio: COMMON NORMALS: no JVD, regular rate, regular rhythm, S1 normal heart sound present, S2 normal heart sound present and No murmurs present (Cardio) RATE: regular rate RHYTHM: regular rhythm HEART SOUNDS: S1 normal heart sound present and S2 normal heart sound present Neuro: COMMON NORMALS: patient oriented x3 SENSORIUM/ORIENTATION: Yes alert Course Vital Signs: Vital signs: Vital Signs Temperature 97.9 F 02/18/22 18:49 Pulse Rate 95 02/18/22 18:49 Respiratory Rate 16 02/18/22 18:49 Blood Pressure 122/71 02/18/22 18:49 Pulse Oximetry 95 02/18/22 18:49 Oxygen Delivery Me thod 02/18/22 18:49 MDM - General Adult Medical Decision Making Patient is in today for throat pain x2 days. Thinks that he has strep. Rapid strep test is negative here; however, patient does have erythema and exudates to tonsils bilateral worse on the right. Voice is normal without extension of erythema to the palate. No suspicion of peritonsillar abscess at this time. I will go ahead and treat for exudative tonsillitis. Advised patient of possible benefits and side effects of medication. Follow-up with primary care provider. Return to the ER for any new or worsening symptoms. Lab Data Laboratory Results Group A Strep Rapid Negative (Negative) 02/18/22 19:26 Discharge Plan Discharge Patient Disposition: Home Clinical Impression: Exudative tonsillitis Condition: Stable Prescriptions: New amoxicillin-pot clavulanate 875-125 mg tablet 1 tab PO BID 10 Days Qty: 20 0RF No Action Vitamin B-1 (mononitrate) 100 mg Tablet 100 mg PO DAILY Qty: 30 0RF Discharge Orders: Discharge ED (Routine); Ordered 02/18/22 Ordered By: Corinne Bettencourt Discharge Diet: Usual diet Discharge Activity: Resume usual activity Patient Instructions: Tonsillitis (ED) Activity Restrictions/Additional Instructions: Your strep test was negative today. You are being treated for tonsillitis. Take antibiotics as prescribed. Gargle with warm salt water to help with pain and exudates in the back of the throat. Follow-up with primary care provider as needed. Return to the ER for new or worsening symptoms. Coding Level of Care Code ED Wire Frame Maker for Marietta Fwdeanna Exam Detailed
[2022-02-18 19:41] LABS: Rapid Strep A Test Negative (Negative)
[2022-02-18 20:19] VITALS: RESP 16
== END 2022-02-18 20:20 | disposition home or self-care (01) ==
PROVIDERS: Emergency Medicine; Emergency Provider Nurse Practitioner Family
DX: J03.90 Acute tonsillitis, unspecified (principal)
CPT/HCPCS: 87081; 87880; 99283

== ENCOUNTER 2022-07-30 18:59 | Emergency (ER) | payer MEDICAID, SELFPAY ==
--- NOTE | 2022-07-30 19:07 | XRR_ITS ---
PROCEDURE INFORMATION: Exam: XR Left Foot Exam date and time: 07/30/2022 7:13 PM Age: 42 years old Clinical indication: Pain; Foot; Left; Additional info: Injury TECHNIQUE: Imaging protocol: Radiologic exam of the left foot. Views: 3 or more views. COMPARISON: No relevant prior studies available. FINDINGS: Bones/joints: The alignment of the joints is anatomic and the joint spaces are maintained. There is no evidence of acute fracture. Soft tissues: No radiopaque foreign bodies are identified. There are no soft tissue swelling or calcifications. XR/XR foot LT min 3V* [id number] IMPRESSION: Unremarkable radiographic appearance of the left foot.
[2022-07-30 19:16] VITALS: BP 124/71; PULSE 90; RESP 19; TEMP 36.8; O2SAT 97; BMI 22.1
--- NOTE | 2022-07-30 19:22 | ED_ITS ---
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 Patient comes in due to increased swelling and pain to the first MTP joint of the left foot. Swelling and bruising is noted. Cap refill is intact. Review of the record notes that patient has a history of substance abuse including alcohol and methamphetamines. Associated symptoms: Deny chest pain, fever(s) or rash Review of Systems General: Reports: 10 or more systems reviewed and unremarkable except in HPI and below Const: Denies: fever(s) Card: Denies: chest pain Resp: Denies: dyspnea GI: Denies: vomiting Musc: Reports: extremity pain Skin/Breast: Denies: rash PFS ED PFSH: Medical History (Updated 07/30/22 @ 19:47 by MILES Castro) No pertinent past medical history Psychiatric care Surgical History No pertinent past surgical history Social History Smoking and tobacco status: current every day smoker Physical Exam Const: COMMON NORMALS: alert HENMT: COMMON NORMALS: atraumatic HEAD & SCALP: atraumatic Neck/C-Spine: COMMON NORMALS: full ROM Resp: COMMON NORMALS: normal respiratory effort Cardio: COMMON NORMALS: regular rate RATE: regular rate Back/Pelvis: COMMON NORMALS: thoracic and lumbar spine normal to inspection Extremity: LEFT LOWER EXTREMITY: Yes foot & digits (Swelling and bruising to the first MTP joint) Left foot and digits: Yes inspection, Yes palpation and Yes ROM Neuro: SENSORIUM/ORIENTATION: Yes alert Skin: COMMON NORMALS: turgor normal GENERAL SKIN EXAM: turgor normal Course Vital Signs: Vital signs: Vital Signs Temperature 98.2 F 07/30/22 19:16 Pulse Rate 90 07/30/22 19:16 Respiratory Rate 19 H 07/30/22 19:16 Blood Pressure 124/71 07/30/22 19:16 Pulse Oximetry 97 07/30/22 19:16 Oxygen Delivery Me thod Room Air 07/30/22 19:16 MDM - Extremity (Nontraumatic) Medical Decision Making 42-year-old male patient comes in for evaluation of injury to the left foot. On exam patient has swelling and bruising to the first MTP joint of the left foot. Distal cap refill is intact. Decreased range of motion due to swelling. Pulses are intact to the foot. Differential diagnosis includes fracture, sprain, contusion. X-ray noted no fracture or dislocation. Reviewed exam with patient with recommendations for treatment of sprain and need for follow-up. Patient reported understanding agreed to plan. Lab Data Radiology Impressions Foot X-Ray 07/30/22 19:07 IMPRESSION: Unremarkable radiographic appearance of the left foot. Discharge Plan Discharge Patient Disposition: Home Clinical Impression: Sprain of metatarsophalangeal (joint) of foot Qualifiers: Encounter type: initial encounter Qualified Code(s): S93.529A - Sprain of metatarsophalangeal joint of unspecified toe(s), initial encounter Condition: Stable Prescriptions: New ibuprofen 800 mg tablet 800 mg PO TID PRN (Reason: pain) Qty: 30 0RF No Action Vitamin B-1 (mononitrate) 100 mg Tablet 100 mg PO DAILY Qty: 30 0RF Discharge Orders: Discharge ED (Routine); Ordered 07/30/22 Ordered By: Tereso Nunez Discharge Diet: Usual diet Discharge Activity: Increase activity as tolerated Patient Instructions: Foot Sprain (ED) Activity Restrictions/Additional Instructions: Use elastic bandage and supportive shoe until he can wear your regular shoes comfortably. Use acetaminophen and ibuprofen for pain. Use ice packs for further pain relief. Follow-up with primary care for further instructions. Return to ED for new concerns. Stand Alone Forms: Work/School Release Coding Level of Care Code ED Musical Instruments Assembler for Marietta Cobb
[2022-07-30] MEDS: ibuprofen 800 mg tablet PO (20:15)
[2022-07-30] MEDS: HYDROcodone-acetaminophen 5-325 mg Tablet 1 TAB PO (20:15)
--- NOTE | 2022-08-01 13:03 | DCPLANNER ---
contracting manager called patient due to no primary care physician - no answer at this time.
== END 2022-07-30 20:20 | disposition home or self-care (01) ==
PROVIDERS: Emergency Provider Nurse Practitioner Family
DX: S93.522A Sprain of metatarsophalangeal joint of left great toe, initial encounter (principal); F17.210 Nicotine dependence, cigarettes, uncomplicated; X50.1XXA Overexertion from prolonged static or awkward postures, initial encounter
CPT/HCPCS: 73630; 99283

== ENCOUNTER 2023-10-25 15:47 | Emergency (ER) | payer OTHER, SELFPAY ==
[2023-10-25 16:14] VITALS: BP 111/71; PULSE 50; RESP 17; TEMP 36.9; O2SAT 100; BMI 22.8
--- NOTE | 2023-10-25 17:28 | ED_ITS ---
HPI - URI/Sore Throat General: Chief Complaint: Upper Respiratory Infection Stated Complaint: throat pain, jaw pain Time Seen by Provider: 10/25/23 16:29 History of Present Illness: 43-year-old male patient comes in today with sore throat, left-sided jaw pain, and nasal drainage. Patient appears nontoxic. Patient reports that 3 weeks ago he had a tooth pulled due to a dental infection. Patient reports that his throat was sore before that. Patient denies any routine/seasonal allergies. Review of Systems General: Reports: 10 or more systems reviewed and unremarkable except in HPI and below ENMT: Reports: throat pain [facility] ED PFS: Medical History (Updated 10/25/23 @ 17:49 by MILES Castro) Psychiatric care No pertinent past medical history Surgical History No pertinent past surgical history Social History Smoking and tobacco/nicotine status: current every day tobacco/nicotine user Physical Exam Const: COMMON NORMALS: alert HENMT: NOSE: Nasal discharge present THROAT: posterior oropharynx abnormal cobblestoning Neck/C-Spine: COMMON NORMALS: full ROM Chest: COMMONS NORMALS: normal inspection of the chest Resp: COMMON NORMALS: normal respiratory effort and clear to auscultation bilaterally AUSCULTATION: clear to auscultation bilaterally Cardio: COMMON NORMALS: regular rhythm RHYTHM: regular rhythm GI: COMMON NORMALS: non-tender Extremity: COMMON NORMALS: normal to inspection Neuro: SENSORIUM/ORIENTATION: Yes alert Skin: COMMON NORMALS: turgor normal GENERAL SKIN EXAM: turgor normal Course Vital Signs: Vital signs: Vital Signs Temperature 98.4 F 10/25/23 16:14 Pulse Rate 50 L 10/25/23 16:14 Respiratory Rate 17 10/25/23 16:14 Blood Pressure 111/71 10/25/23 16:14 Pulse Oximetry 100 10/25/23 16:14 Oxygen Delivery Me thod Room Air 10/25/23 16:14 MDM - URI/Sore Throat Medical Decision Making Patient comes in today for complaints of sore throat. Patient reports symptoms for about 2 weeks. Patient recently had a dental procedure with removal of 2 molars to the right lower jaw. On exam posterior pharynx shows cobblestoning. No open gingiva from dental procedure. Differential diagnosis includes upper respiratory infection, strep pharyngitis, seasonal allergies. Strep test was negative. Will treat patient with dexamethasone to help with his sore throat. Patient will also place on doxycycline 100 mg twice a day for the next 7 days. Most likely patient has a upper respiratory infection possibly bacterial due to a prolonged illness for greater than 14 days. Patient reports understanding of care plan and need for follow-up or return to the ER Lab Data Laboratory Results Group A Strep Rapid Negative (Negative) 10/25/23 17:32 No radiology studies performed this visit Discharge Plan Discharge Patient Disposition: Home Clinical Impression: Pharyngitis Qualifiers: Pharyngitis/tonsillitis etiology: unspecified etiology Qualified Code(s): J02.9 - Acute pharyngitis, unspecified Condition: Stable Prescriptions: New doxycycline hyclate 100 mg capsule 100 mg PO BID 7 Days Qty: 14 0RF No Action Vitamin B-1 (mononitrate) 100 mg Tablet 100 mg PO DAILY Qty: 30 0RF ibuprofen 800 mg tablet 800 mg PO TID PRN (Reason: pain) Qty: 30 0RF Discharge Orders: Discharge ED (Routine); Ordered 10/25/23 Ordered By: Tereso Nunez Discharge Diet: Usual diet Discharge Activity: Increase activity as tolerated Patient Instructions: Pharyngitis (ED) Activity Restrictions/Additional Instructions: Drink plenty of water and fluids activity as tolerated. Follow-up with primary care in 1 week for recheck. Coding Level of Care Code ED Care Worker for Marietta Cobb
[2023-10-25 17:46] LABS: Rapid Strep A Test Negative (Negative)
[2023-10-25] MEDS: doxycycline 100 mg Tablet PO (18:10)
[2023-10-25] MEDS: dexamethasone 10 mg/mL INJ IM (18:11)
[2023-10-25 18:16] VITALS: BP 114/72; PULSE 52; RESP 16; TEMP 36.9; O2SAT 100
== END 2023-10-25 18:18 | disposition home or self-care (01) ==
PROVIDERS: Emergency Provider Nurse Practitioner Family
DX: J02.9 Acute pharyngitis, unspecified (principal); Z72.0 Tobacco use
CPT/HCPCS: 87081; 87880; 96372; 99284; J1100

== ENCOUNTER 2024-04-27 15:47 | Inpatient (IN) | payer OTHER, SELFPAY ==
[2024-04-27 15:50] VITALS: BP 96/74; PULSE 100; RESP 18; TEMP 36.4; O2SAT 97
--- NOTE | 2024-04-27 15:55 | ED.C_ITS ---
HPI - Psych 2 General: Chief Complaint: Psychiatric Symptoms Stated Complaint: SI Time Seen by Provider: 04/27/24 15:49 Source: police Limitations: no limitations History of Present Illness: 43-year-old male is brought in here by molly duran for suicidal ideation please states that he was been trying to run out to traffic and stated he wanted to by getting ran over patient does state he just wants to has been severely depressed he does states he has been drinking today as well. Associated symptoms: Reports depression and suicidal ideation Related Data Home Medications Medication Instructions Recorded Confirmed fluticasone propionate 50 1 spray intranasal DAILY 04/27/24 04/27/24 mcg/actuation nasal spray,suspension hydrocodone 7.5 mg-acetaminophen 1 tab PO Q4H PRN Pain 04/27/24 04/27/24 325 mg tablet meloxicam 15 mg tablet 15 mg PO DAILY 04/27/24 04/27/24 tizanidine 4 mg tablet 4 mg PO Q6H PRN Nausea And Vomiting 04/27/24 04/27/24 Allergies Allergy/AdvReac Type Severity Reaction Status Date / Time tramadol Allergy ADR-Vomitin Verified 10/25/23 16:17 g Review of Systems 2 Const: Denies: fever(s), chills, body aches or change in appetite ENMT: Denies: throat pain or dental pain Card: Denies: chest pain Resp: Denies: dyspnea GI: Denies: abdominal pain, nausea, vomiting or diarrhea Musc: Denies: neck pain or back pain Skin/Breast: Denies: rash Neuro: Denies: headache(s) Psych: Reports: depression and suicidal ideation PFS ED 2 PFSH: Medical History No pertinent past medical history Surgical History No pertinent past surgical history Social History Smoking and tobacco/nicotine status: current every day tobacco/nicotine user Physical Exam 2 Const: COMMON NORMALS: patient oriented x3 GENERAL APPEARANCE: disheveled HENMT: COMMON NORMALS: normocephalic and atraumatic HEAD & SCALP: n ormocephalic and atraumatic Eye: COMMON NORMALS: conjunctivae normal CONJUNCTIVA: Yes conjunctivae normal Neck/C-Spine: COMMON NORMALS: full ROM and supple Chest: COMMONS NORMALS: normal inspection of the chest Resp: COMMON NORMALS: normal respiratory effort Cardio: COMMON NORMALS: regular rate, regular rhythm and No murmurs present (Cardio) RATE: regular rate RHYTHM: regular rhythm Extremity: COMMON NORMALS: normal to inspection and full ROM Neuro: COMMON NORMALS: patient oriented x3, moves all extremities and no focal motor deficits Psych: COMMON NORMALS: mental status grossly normal, Normal thought process present and cooperative THOUGHT PROCESS: Normal thought process present T HOUGHT CONTENT: Yes Suicidality present Skin: COMMON NORMALS: no rashes or lesions noted and no wounds GENERAL SKIN EXAM: no rashes or lesions noted Course 2 Vital Signs: Vital signs: Vital Signs Temperature 97.6 F 04/27/24 15:50 Pulse Rate 100 04/27/24 15:50 Respiratory Rate 18 04/27/24 15:50 Blood Pressure 96/74 04/27/24 15:50 Pulse Oximetry 97 04/27/24 15:50 MDM - Psych Medical Decision Making Patient presents here with suicidal ideation as well as alcohol and drug abuse I spoke to psychiatrist will admit at this time. Medical Records I reviewed the patient's medical records. Lab Data I reviewed the patient's lab results. 04/27/24 16:17 04/27/24 16:17 Laboratory Results WBC 7.47 10^3/uL (3.29-11.43) 04/27/24 16:17 RBC 4.88 10^6/uL (3.85-5.65) 04/27/24 16:17 Hgb 14.90 g/dL (11.27-16.99) 04/27/24 16:17 Hct 44.0 % (37-53) 04/27/24 16:17 MCV 90.2 fl (82-101) 04/27/24 16:17 MCH 30.5 pg (27-33) 04/27/24 16:17 MCHC 33.9 g/dL (30-55) 04/27/24 16:17 RDW 12.0 % (12.1-15.1) L 04/27/24 16:17 Plt Count 303 10^3/cmm (157-399) 04/27/24 16:17 MPV 9.1 fL (7.4-10.4) 04/27/24 16:17 Neut % (Auto) 71.9 % 04/27/24 16:17 Lymph % (Auto) 18.3 % 04/27/24 16:17 [place] % (Auto) 7.9 % 04/27/24 16:17 Eos % (Auto) 1.1 % 04/27/24 16:17 Baso % (Auto) 0.5 % 04/27/24 16:17 Neut # (Auto) 5.37 10^3/uL (1.8-7.7) 04/27/24 16:17 Lymph # (Auto) 1.4 10^3/uL (0.8-4.8) 04/27/24 16:17 [place] # (Auto) 0.6 10^3/uL (0.2-0.9) 04/27/24 16:17 Eos # (Auto) 0.1 10^3/uL (0.0-0.8) 04/27/24 16:17 Baso # (Auto) 0.0 10^3/uL (0.0-0.1) 04/27/24 16:17 Nucleated RBC % (auto) 0 % 04/27/24 16:17 Nucleated RBCs # 0.0 /100WBC 04/27/24 16:17 Sodium 141 mmol/L (136-145) 04/27/24 16:17 Potassium 4.5 mmol/L (3.5-5.1) 04/27/24 16:17 Chloride 103 mmol/L (98-107) 04/27/24 16:17 Carbon Dioxide 25 mmol/L (22-29) 04/27/24 16:17 Anion Gap 17.5 (5-19) 04/27/24 16:17 BUN 18 mg/dL (6-20) 04/27/24 16:17 Creatinine 0.8 mg/dL (0.7-1.2) 04/27/24 16:17 GFR Calculation 106.0 mL/min (90-130) 04/27/24 16:17 Glucose 104 mg/dL (65-115) 04/27/24 16:17 Calculated Osmolality 294 mOsm/kg (285-295) 04/27/24 16:17 Calcium 9.7 mg/dL (8.5-10.5) 04/27/24 16:17 Total Bilirubin 0.4 mg/dL (0.15-1.2) 04/27/24 16:17 AST 30 U/L (0-40) 04/27/24 16:17 ALT 20 U/L (0-41) 04/27/24 16:17 Alkaline Phosphatase 72 U/L (40-130) 04/27/24 16:17 Total Protein 7.7 g/dL (6.6-8.7) 04/27/24 16:17 Albumin 5.0 g/dL (3.5-5.2) 04/27/24 16:17 Globulin 2.7 g/dL (1.3-4.6) 04/27/24 16:17 Salicylates < 0.3 mg/dL (3-10) L 04/27/24 16:17 Urine Opiates Screen Negative ng/mL (Negative) 04/27/24 16:04 Acetaminophen < 5.0 ug/mL (10-30) L 04/27/24 16:17 Ur Barbiturates Screen Negative ng/mL (Negative) 04/27/24 16:04 Ur Phencyclidine Scrn Negative ng/mL (Negative) 04/27/24 16:04 Ur Amphetamines Screen Positive ng/mL (Negative) H 04/27/24 16:04 U Benzodiazepines Scrn Negative ng/mL (Negative) 04/27/24 16:04 Urine Cocaine Screen Negative ng/mL (Negative) 04/27/24 16:04 U Marijuana (THC) Screen Positive ng/mL (Negative) H 04/27/24 16:04 Ethyl Alcohol 198 mg/dL (0-10) H 04/27/24 16:17 No radiology studies performed this visit Discharge Plan Discharge Patient Disposition: Admitted As Inpatient Clinical Impression: Suicidal ideation, Methamphetamine abuse, Alcohol abuse Condition: Stable Prescriptions: No Action hydrocodone-acetaminophen 7.5-325 mg tablet 1 tab PO Q4H PRN (Reason: Pain) tizanidine 4 mg Tablet 4 mg PO Q6H PRN (Reason: Nausea And Vomiting) meloxicam 15 mg Tablet 15 mg PO DAILY fluticasone propionate [Flonase] 50 mcg/actuation [place],Suspension 1 spray INTRANASAL DAILY Rx Instructions: administer into each nostril Coding Level of Care Code ED Senior Network Architect for Chg Fwdeanna
[2024-04-27 16:25] LABS: Amphetamines Screen Urine Positive (Negative); Barbiturates Screen Urine Negative (Negative); Benzodiazepines Screen Urine Negative (Negative); Cocaine Screen Urine Negative (Negative); Opiate Screen Urine Negative (Negative); PCP Screen Urine Negative (Negative); THC Screen Urine Positive (Negative)
[2024-04-27 16:26] LABS: Basophils % 0.5 %; Eosinophils # 0.1 10^3/uL (0.0-0.8); Eosinophils % 1.1 %; Lymphocytes # 1.4 10^3/uL (0.8-4.8); Lymphocytes % 18.3 %; Mean Corpuscular HGB Conc 33.9 g/dL (30-55); Mean Corpuscular Hemoglobin 30.5 pg (27-33); Mean Corpuscular Volume 90.2 fl (82-101); Mean Platelet Volume 9.1 fL (7.4-10.4); Monocytes # 0.6 10^3/uL (0.2-0.9); Monocytes % 7.9 %; Neutrophils # 5.37 10^3/uL (1.8-7.7); Neutrophils % 71.9 %; Nucleated Red Blood Cells % 0 %; Platelet Count 303 10^3/cmm (157-399); Red Blood Count 4.88 10^6/uL (3.85-5.65); White Blood Count 7.47 10^3/uL (3.29-11.43)
[2024-04-27 16:43] LABS: Alanine Aminotransferase 20 U/L (0-41); Alcohol Level 198 mg/dL (0-10); Alkaline Phosphatase 72 U/L (40-130); Anion Gap 17.5 (5-19); Aspartate Amino Transferase 30 U/L (0-40); Blood Urea Nitrogen 18 mg/dL (6-20); Calcium 9.7 mg/dL (8.5-10.5); Carbon Dioxide 25 mmol/L (22-29); Chloride 103 mmol/L (98-107); Creatinine Clr Calc Pharmacy 118.4772; Globulin 2.7 g/dL (1.3-4.6); Glucose 104 mg/dL (65-115); Osmolality Calculated 294 mOsm/kg (285-295); Potassium 4.5 mmol/L (3.5-5.1); Sodium 141 mmol/L (136-145); Total Bilirubin 0.4 mg/dL (0.15-1.2); Total Protein 7.7 g/dL (6.6-8.7)
[2024-04-27 16:45] LABS: Acetaminophen < 5.0 ug/mL (10-30); Salicylate < 0.3 mg/dL (3-10)
[2024-04-27] MEDS: LORazepam 2 mg/mL INJ 1 mL IM (16:54)
[2024-04-27] MEDS: diphenhydrAMINE 50 mg/mL SDV 1mL IM (16:54)
[2024-04-27] MEDS: haloperidol inj 5 mg/mL INJ 1 mL IM (16:54)
--- NOTE | 2024-04-27 16:55 | PC.NURSE ---
Pt escalated, yelling and cussing. pt hitting the mendoza and kicking the bed. pt screaming Bring it on mother fucker. i can have my door closed. Lets go. pt continues hitting the bed. pt continues cussing at staff. pt mumbling at times. pt states Strap me down mother fucker pt is also stating You ready to fight? I'm ready to fight on [address] Mills notified.
--- NOTE | 2024-04-27 17:40 | PC.NURSE ---
Attempted to read 96 hour hold rights to patient. Patient refused for this nurse to read his rights to him. Patient stated I am going to [place] all of you, you are taking away my rights. This nurse attempted to read 96 hour hold rights again to patient, Nick from security present during attempt of reading of rights. Patient refused and told this nurse to rip up his copy.
--- NOTE | 2024-04-27 17:58 | PC.NURSE ---
report called to Brendan HARRISON at [phone].
[2024-04-27 18:17] VITALS: BP 96/74; PULSE 100; O2SAT 97
[2024-04-27 18:18] VITALS: PULSE 87; RESP 16; O2SAT 97
--- NOTE | 2024-04-27 18:30 | PC.NURSE ---
Admission assessment Patient was brought into the hospital by police. Patient was found in traffic, with intent to end his life. patient endorses increased depression. Patient angry and agitated in ED. Patient was given IM injections: B52 after posturing and threatening staff, per report. On admission to [facility], no lesions or contraband uncovered during skin assessment. Patient's responses are delayed and mumbled. Patient had to be assisted by staff while ambulating. Patient urinated in floor. Patient then escorted to bed. Patient's breathing is unlabored.
--- NOTE | 2024-04-27 18:42 | PC.NURSE ---
This nurse and CHEMICAL WEIGHER attempted to get patient's BP reading. Patient unable to sit still for an adequate amount of time for a reading to be obtained. Patient does not appear distressed
--- NOTE | 2024-04-27 18:46 | PC.NURSE ---
SEE NURSES NOTE.
[2024-04-27 20:00] VITALS: BP 100/48; PULSE 85; RESP 18; O2SAT 99
[2024-04-28] VITALS: BP 98/59; PULSE 72; RESP 18; O2SAT 98
[2024-04-28 04:00] VITALS: PULSE 97; RESP 18; TEMP 36.7; O2SAT 95
[2024-04-28 07:48] VITALS: BP 107/71; PULSE 86; RESP 18; TEMP 37.1; O2SAT 99
[2024-04-28] MEDS: fluticasone nasal spray 16gm Btl 1 SPRAY INTRANASAL (07:53)
[2024-04-28] MEDS: meloxicam 7.5 mg tablet 15 MG PO (07:53)
[2024-04-28] MEDS: thiamine 100 mg Tablet PO (07:53)
[2024-04-28] MEDS: multivitamin therapeutic Tablet 1 TAB PO (07:53)
[2024-04-28] MEDS: folic acid 1 mg Tablet PO (07:53)
--- NOTE | 2024-04-28 08:42 | PC.OT ---
OT EVALUATION ATTEMPTED AT 0830; PATIENT SLEEPING SOUNDLY AND DOES NOT AWAKEN
--- NOTE | 2024-04-28 11:07 | PC.OT ---
OT EVALUATION ATTEMPTED AGAIN AT 1100; PATIENT CONTINUES TO SLEEP AND NOT AWAKEN
[2024-04-28 11:47] VITALS: BP 102/71; PULSE 87; RESP 18; TEMP 36.8; O2SAT 97
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
[2024-04-28 16:00] VITALS: BP 119/83; PULSE 76; RESP 18; TEMP 36.3; O2SAT 99
[2024-04-28 19:59] VITALS: BP 103/68; PULSE 82; RESP 16; TEMP 36.4; O2SAT 98
[2024-04-29] VITALS (7 sets, daily range): BP systolic 97–117; BP diastolic 56–76; PULSE 54–76; RESP 18; TEMP 36.5–36.6; O2SAT 97–99
[2024-04-29] MEDS: hyDROXYzine 25 mg Capsule 50 MG PO ×3 (06:30→21:40)
--- NOTE | 2024-04-29 06:31 | PC.NURSE ---
pt at nurses station wanting something for anxiety.
--- NOTE | 2024-04-29 06:34 | PC.NURSE ---
pt vs not collectedper charge resp16
[2024-04-29] MEDS: multivitamin therapeutic Tablet 1 TAB PO (07:46)
[2024-04-29] MEDS: meloxicam 7.5 mg tablet 15 MG PO (07:46)
[2024-04-29] MEDS: thiamine 100 mg Tablet PO (07:46)
[2024-04-29] MEDS: folic acid 1 mg Tablet PO (07:46)
--- NOTE | 2024-04-29 09:23 | PC.NURSE ---
Vistaril Vistaril 50mg PO given to the patient for reports of anxiety. Will continue to monitor.
--- NOTE | 2024-04-29 12:08 | PC.NURSE ---
pt refused, got agitated while taking pressure.
--- NOTE | 2024-04-29 15:07 | P.NPUPN_ITS ---
Subjective NPU 2 Subjective: 43-year-old male admitted intoxicated wi th a history of polysubstance abuse including alcohol and methamphetamine abuse. The patient had continued to struggle with completion of activities of daily living. He had spent nearly all of the day in his room except to come out to eat meals. He had remained disgruntled and continued to state that he was here for doing something unsafe. He had been able to recall the his current placement but still appeared unwilling to discuss any problems. He had stated that he did not wish to have any help for his substance abuse related issues. Mental Status Exam 2 MSE Comments: Patient appeared malodorous and appeared to be a thin male who appeared older than his stated age with some evidence of mild psychomotor agitation. There is no evidence of any abnormal involuntary motor movements, tics, or tremors appreciated. His speech was mostly slurred and limited in productivity and diminished in volume. His thought process was mostly linear. His thought content showed no evidence of homicidal or suicidal ideation. He did not appear to be responding to internal stimuli. There was no clear evidence of delusional thinking. He did appear somewhat guarded on interview. His mood was described as not so good. His affect was irritable and mood congruent. His insight is feeble. His judgment is poor. His impulse control appeared impaired. Vitals/I&O/Wt Last Vital Signs Temp 97.9 F 04/29/24 12:11 Pulse 63 04/29/24 12:11 Resp 18 04/29/24 12:11 BP 117/76 04/29/24 12:11 Pulse Ox 99 04/29/24 12:11 O2 Del Method Room Air 04/29/24 12:11 Weight last 48 hrs Weight 68.039 kg Data NPU 04/27/24 16:17 04/27/24 16:17 A&P Assessment and plan (1) Unspecified mood [affective] disorder: (2) Suicidal ideation: (3) Methamphetamine abuse: Plan 43 year old male admitted under influence of alcohol and methamphetamine with suicidal ideation. #1.? Engage patient in individual milieu and group therapy. #2?? Recommend sober living treatment at the highest level of care to which the patient is willing to commit. #3??? CIWA for alcohol withdrawal #4?? TO-15 minute checks? #5?? Will attempt to gather collateral information Involuntary Hold Information 2 96 Hour Hold: 96 Hour Involuntary Admission: Yes 96 Hour Hold Ending Date: 05/03/24 96 Hour Hold Ending Time: 16:02 Other Hold: Hold End Date: 05/03/24 Attestations NPU 2 Medical Necessity Statement*: Inpatient hospitalization is medically necessary and deemed to ?be ?the clinically appropriate intervention ?at this time.? We will monitor/initiate medications and make changes as indicated.? The patient?s likely length of stay 1-2 days. Coding Level of Care Code Acute Code for Chg Fwd Diagnoses Unspecified mood [affective] disorder F39 Suicidal ideation R45.851 Methamphetamine abuse F15.10
[2024-04-29] MEDS: trazodone 50 mg Tablet PO (21:40)
[2024-04-30 06:00] VITALS: BP 97/65; PULSE 71; RESP 18; TEMP 36.3; O2SAT 98
[2024-04-30] MEDS: OLANZapine 5 mg ODT PO (08:51)
[2024-04-30] MEDS: folic acid 1 mg Tablet PO (08:52)
[2024-04-30] MEDS: hyDROXYzine 25 mg Capsule 50 MG PO ×2 (08:52→20:33)
[2024-04-30] MEDS: multivitamin therapeutic Tablet 1 TAB PO (08:52)
[2024-04-30] MEDS: thiamine 100 mg Tablet PO (08:52)
[2024-04-30] MEDS: meloxicam 7.5 mg tablet 15 MG PO (08:53)
--- NOTE | 2024-04-30 10:00 | PC.NURSE ---
During shift assessment when this nurse asked pt if he was having any thoughts of wanting to harm himself or other patients stated yes . When he was asked which one he stated myself, as soon as i get out of here . Pt then stated that he was not going to tell anyone what his plan was to harm himself because it is none of my business . Behavioral monitoring continues
--- NOTE | 2024-04-30 10:26 | PC.NURSE ---
Patient Note/Behavior Patient very agitated when on the phone earlier this am. Patient yelling at times to whoever he was speaking with. Patient comes to nurses station stating that he just needs to get out of here. States he just wants to end it and doesn't have a reason to keep going, but i can't do it while i am here. Patient asked for something to help with anxiety - PRN medications given. Patient did contract for safety. Since then; patient has been more calm; has showered and mostly been lying in his bed. Above statements reported to Dr. Keller.
[2024-04-30 14:00] VITALS: BP 102/69; PULSE 79; RESP 16; TEMP 36.6; O2SAT 97
--- NOTE | 2024-04-30 14:26 | P.NPUPN_ITS ---
Subjective NPU 2 Subjective: 43-year-old male admitted intoxicated wi th a history of polysubstance abuse including alcohol and methamphetamine abuse. The patient had reported to nursing staff that he wished that someone would release him from the hospital so that he could go out there and kill himself since he could not kill himself here. He had stated this after a somewhat difficult phone conversation witnessed by staff. The patient had then gone back to his room where he had spent most of the day and reported feeling fine currently. He had reported no desire to consider changes in any current substance use asking for no help with outpatient or inpatient substance abuse treatment. He had not requested any medications for depression. Mental Status Exam 2 MSE Comments: Patient appeared malodorous and appeared to be a thin male who appeared older than his stated age with some evidence of mild psychomotor agitation. There is no evidence of any abnormal involuntary motor movements, tics, or tremors appreciated. His speech was mostly slurred and limited in productivity and diminished in volume. His thought process was mostly linear. His thought content revealed suicidal ideation as he had requested desire to leave hospital to kill himself. He denied homicidal ideation. He did not appear to be responding to internal stimuli. There was no clear evidence of delusional thinking. He remained guarded on interview. His mood was described as allright. His affect was irritable and mood congruent. His insight is feeble. His judgment is poor. His impulse control appeared impaired. Vitals/I&O/Wt Last Vital Signs Temp 97.4 F L 04/30/24 06:00 Pulse 71 04/30/24 06:00 Resp 18 04/30/24 06:00 BP 97/65 04/30/24 06:00 Pulse Ox 98 04/30/24 06:00 O2 Del Method Room Air 04/30/24 06:00 Data NPU 04/27/24 16:17 04/27/24 16:17 A&P Assessment and plan (1) Unspecified mood [affective] disorder: (2) Suicidal ideation: (3) Methamphetamine abuse: Plan 43 year old male admitted under influence of alcohol and methamphetamine with suicidal ideation. #1.? Engage patient in individual milieu and group therapy. #2?? Recommend sober living treatment at the highest level of care to which the patient is willing to commit. #3??? CIWA for alcohol withdrawal #4?? TO-15 minute checks? #5?? Will attempt to gather collateral information Involuntary Hold Information 2 96 Hour Hold: 96 Hour Involuntary Admission: Yes 96 Hour Hold Ending Date: 05/03/24 96 Hour Hold Ending Time: 16:02 Other Hold: Hold End Date: 05/03/24 Attestations NPU 2 Medical Necessity Statement*: Inpatient hospitalization is medically necessary and deemed to ?be ?the clinically appropriate intervention ?at this time.? We will monitor/initiate medications and make changes as indicated.? The patient?s likely length of stay 2-3 days. Coding Level of Care Code Acute Code for Chg Fwd Diagnoses Unspecified mood [affective] disorder F39 Suicidal ideation R45.851 Methamphetamine abuse F15.10
[2024-04-30 19:38] VITALS: BP 110/65; PULSE 75; RESP 18; TEMP 36.6; O2SAT 98
[2024-04-30] MEDS: trazodone 50 mg Tablet PO (20:33)
--- NOTE | 2024-04-30 22:00 | PC.NURSE ---
During shift assessment pt stated that he is having thoughts of hurting himself. When asked if he had a plan on how he would do this he stated im not going to tell you, its none of your business. And im not going to do it here, im going to do it as soon as i get discharged so it doesn't matter. Behavioral monitoring continues
[2024-05-01 06:00] VITALS: BP 115/65; PULSE 60; RESP 18; TEMP 36.8; O2SAT 99; BMI 21.4
[2024-05-01] MEDS: meloxicam 7.5 mg tablet 15 MG PO (07:39)
[2024-05-01] MEDS: thiamine 100 mg Tablet PO (07:39)
[2024-05-01] MEDS: multivitamin therapeutic Tablet 1 TAB PO (07:39)
[2024-05-01] MEDS: folic acid 1 mg Tablet PO (07:40)
[2024-05-01] MEDS: nicotine 2 mg Gum BUCCAL (07:40)
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
[2024-05-01] MEDS: hyDROXYzine 25 mg Capsule 50 MG PO (08:05)
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
[2024-05-01 11:10] VITALS: BP 115/65; PULSE 60; RESP 18; TEMP 36.8; O2SAT 99
== END 2024-05-01 11:28 | disposition home or self-care (01) | DRG 885 ==
LOC: ER 17:19 → NP 17:49
PROVIDERS: Admitting Provider Psychiatry & Neurology Psychiatry; Emergency Provider Emergency Medicine; Visit Provider Psychiatry & Neurology Psychiatry
DX: F39 Unspecified mood [affective] disorder (principal); R45.851 Suicidal ideations; F15.10 Other stimulant abuse, uncomplicated; F10.129 Alcohol abuse with intoxication, unspecified; Y90.6 Blood alcohol level of 120-199 mg/100 ml
CPT/HCPCS: 36415; 80053; 80306; 80307; 85025; 96372; 97165; 99285; J1200; J1630; J2060

== ENCOUNTER 2024-06-27 22:43 | Emergency (ER) | payer OTHER, SELFPAY ==
[2024-06-27 22:45] VITALS: BP 97/51; PULSE 67; RESP 18; TEMP 36.6; O2SAT 100; BMI 22.8
[2024-06-27 22:52] VITALS: BP 97/59; PULSE 73; RESP 16; O2SAT 95
--- NOTE | 2024-06-27 23:02 | W.ED.NAVMDI ---
HPI - Nausea/Vomiting/Diarrhea General: Chief complaint: Nausea/Vomiting/Diarrhea Stated complaint: n/v/d, abdomen pain Time Seen by Provider: 06/27/24 22:43 History of Present Illness: 43-year-old man who presents emergency room by ambulance. Apparently has had nausea vomiting and diarrhea all day today. Started with nausea and vomiting which have improved some but he still having diarrhea. Apparently someone who lives in his household had similar symptoms recently. He has no abdominal pain. No known fevers. Related Data Home Medications ?Medication ?Instructions ?Recorded ?Confirmed fluticasone propionate 50 1 spray intranasal DAILY 04/27/24 04/27/24 mcg/actuation nasal spray,suspension meloxicam 15 mg tablet 15 mg PO DAILY 04/27/24 04/27/24 Previous Rx's ?Medication ?Instructions ?Recorded ondansetron 8 mg disintegrating 8 mg PO Q6H #14 tabs 06/28/24 tablet Allergies Allergy/AdvReac Type Severity Reaction Status Date / Time tramadol Allergy ADR-Vomitin Verified 06/27/24 22:52 g Review of Systems Narrative: Constitutional symptoms: Negative except as documented in HPI. Skin symptoms: Negative except as documented in HPI. Eye symptoms: Negative except as documented in HPI. ENMT symptoms: Negative except as documented in HPI. Respiratory symptoms: Negative except as documented in HPI. Cardiovascular symptoms: Negative except as documented in HPI. Gastrointestinal symptoms: Negative except as documented in HPI. Genitourinary symptoms: Negative except as documented in HPI. Musculoskeletal symptoms: Negative except as documented in HPI. Neurologic symptoms: Negative except as documented in HPI. Psychiatric symptoms: Negative except as documented in HPI. Endocrine symptoms: Negative except as documented in HPI. [facility] ED PFSH: Medical History No pertinent past medical history Surgical History No pertinent past surgical history Social History Smoking and tobacco/nicotine status: current every day tobacco/nicotine user Physical Exam Narrative: EXAM NARRATIVE: General: Alert, no acute distress. Skin: Warm, dry. Head: Normocephalic, atraumatic. Neck: Supple, trachea midline. Eye: Extraocular movements are intact. Ears, nose, mouth and throat: mucosa moist. Cardiovascular: Regular, Normal peripheral perfusion. Respiratory: Lungs are clear to auscultation, respirations are non-labored, breath sounds are equal, Symmetrical chest wall expansion. Gastrointestinal: Soft, Nontender, Non distended Musculoskeletal: Normal ROM, no deformity. Neurological: Alert and oriented, No focal neurological deficit observed. Psychiatric: Cooperative, appropriate mood & affect. Course Vital Signs: Vital signs: Vital Signs Temperature 97.9 F 06/27/24 22:45 Pulse Rate 70 06/28/24 00:00 Respiratory Rate 18 06/28/24 00:00 Blood Pressure 112/69 06/28/24 00:00 Pulse Oximetry 96 06/28/24 00:00 Oxygen Delivery Me thod Room Air 06/27/24 22:45 MDM - Nausea/Vomiting/Diarrhea Medical Decision Making Medical decision making: Differential diagnosis for this patient with nausea and vomiting including but not limited to and based on the above HPI, review of systems and physical exam: Urinary tract infection. Appendicitis. Cholecystis. colitis. small bowel obstruction. crohn's flare. pancreatitis. gastritis. peptic ulcer. cyclic vomiting. Viral illness. Influenza. COVID. Orders placed to evaluate differential diagnosis based on the above differential, HPI and physical exam Lab Review: Laboratory results were reviewed and interpreted by myself the emergency room physician. No leukocytosis. No anemia. No renal failure. Flu COVID and RSV are negative. Urinalysis negative for infection. I reviewed the patient's medical record. Reexamination: Patient remained stable. No increased work of breathing. No altered mental status. No focal motor deficits. Tolerating p.o. Assessment and plan: Gastroenteritis Dehydration ? IV fluids and IV Zofran in the emergency room. - Discharged home - Discussed plan with patient. Answered any questions. - Evaluation and treatment of this problem were appropriate in the emergency setting. Lab Data 06/27/24 23:13 06/27/24 23:13 Laboratory Results WBC 7.68 10^3/uL (3.29-11.43) 06/27/24 23:13 RBC 5.05 10^6/uL (3.85-5.65) 06/27/24 23:13 Hgb 15.30 g/dL (11.27-16.99) 06/27/24 23:13 Hct 44.8 % (37-53) 06/27/24 23:13 MCV 88.7 fl (82-101) 06/27/24 23:13 MCH 30.3 pg (27-33) 06/27/24 23:13 MCHC 34.2 g/dL (30-55) 06/27/24 23:13 RDW 12.2 % (12.1-15.1) 06/27/24 23:13 Plt Count 271 10^3/cmm (157-399) 06/27/24 23:13 MPV 9.4 fL (7.4-10.4) 06/27/24 23:13 Neut % (Auto) 64.6 % 06/27/24 23:13 Lymph % (Auto) 27.1 % 06/27/24 23:13 [place] % (Auto) 6.1 % 06/27/24 23:13 Eos % (Auto) 0.9 % 06/27/24 23:13 Baso % (Auto) 0.8 % 06/27/24 23:13 Neut # (Auto) 4.96 10^3/uL (1.8-7.7) 06/27/24 23:13 Lymph # (Auto) 2.1 10^3/uL (0.8-4.8) 06/27/24 23:13 [place] # (Auto) 0.5 10^3/uL (0.2-0.9) 06/27/24 23:13 Eos # (Auto) 0.1 10^3/uL (0.0-0.8) 06/27/24 23:13 Baso # (Auto) 0.1 10^3/uL (0.0-0.1) 06/27/24 23:13 Nucleated RBC % (auto) 0 % 06/27/24 23:13 Nucleated RBCs # 0.0 /100WBC 06/27/24 23:13 Sodium 135 mmol/L (136-145) L 06/27/24 23:13 Potassium 4.0 mmol/L (3.5-5.1) 06/27/24 23:13 Chloride 98 mmol/L (98-107) 06/27/24 23:13 Carbon Dioxide 25 mmol/L (22-29) 06/27/24 23:13 Anion Gap 16.0 (5-19) 06/27/24 23:13 BUN 19 mg/dL (6-20) 06/27/24 23:13 Creatinine 0.9 mg/dL (0.7-1.2) 06/27/24 23:13 GFR Calculation 92.5 mL/min (90-130) 06/27/24 23:13 Glucose 236 mg/dL (65-115) H 06/27/24 23:13 Calculated Osmolality 290 mOsm/kg (285-295) 06/27/24 23:13 Lactic Acid 3.9 mmol/L (0.5-2.2) H 06/27/24 23:13 Calcium 9.9 mg/dL (8.5-10.5) 06/27/24 23:13 Total Bilirubin 0.5 mg/dL (0.15-1.2) 06/27/24 23:13 AST 25 U/L (0-40) 06/27/24 23:13 ALT 19 U/L (0-41) 06/27/24 23:13 Alkaline Phosphatase 75 U/L (40-130) 06/27/24 23:13 C-Reactive Protein 3.0 mg/L (0.0-4.9) 06/27/24 23:13 Total Protein 6.7 g/dL (6.6-8.7) 06/27/24 23:13 Albumin 4.2 g/dL (3.5-5.2) 06/27/24 23:13 Globulin 2.5 g/dL (1.3-4.6) 06/27/24 23:13 Lipase 25 U/L (13-60) 06/27/24 23:13 Urine Color Yellow (Yellow) 06/27/24 23:40 Urine Appearance Turbid (CLEAR) A 06/27/24 23:40 Urine pH 7.0 (5-7) 06/27/24 23:40 Ur Specific [place] 1.011 (1.005-1.030) 06/27/24 23:40 Urine Protein 1+ (Negative) A 06/27/24 23:40 Urine Glucose (UA) Negative (Normal) 06/27/24 23:40 Urine Ketones Negative (Negative) 06/27/24 23:40 Urine Blood Negative (Negative) 06/27/24 23:40 Urine Nitrate Negative (Negative) 06/27/24 23:40 Urine Bilirubin Negative (Negative) 06/27/24 23:40 Urine Urobilinogen 1.0 mg/dL (Negative) 06/27/24 23:40 Ur Leukocyte Esterase Negative (Negative) 06/27/24 23:40 Amorphous Sediment Not Reportable 06/27/24 23:40 Ethyl Alcohol < 10 mg/dL (0-10) 06/27/24 23:13 Influenza A (PCR) Negative (Negative) 06/27/24 23:13 Influenza Type B (PCR) Negative (Negative) 06/27/24 23:13 RSV (PCR) Negative (Negative) 06/27/24 23:13 SARS-CoV-2 (PCR) Negative (Negative) 06/27/24 23:13 No radiology studies performed this visit Discharge Plan Discharge Patient Disposition: Home Clinical Impression: Gastroenteritis, Dehydration Condition: Stable Prescriptions: New ondansetron 8 mg tablet,disintegrating 8 mg PO Q6H Qty: 14 0RF Rx Instructions: Take 1/2-1 tab every 6 hours as needed for nausea and vomiting No Action meloxicam 15 mg Tablet 15 mg PO DAILY fluticasone propionate 50 mcg/actuation [place],Suspension 1 spray INTRANASAL DAILY Rx Instructions: administer into each nostril Discharge Orders: Discharge ED (Routine); Ordered 06/28/24 Ordered By: Denise Frances Discharge Diet: Advance as tolerated Patient Instructions: Gastroenteritis (ED), Opioid Safety, Pain Management Activity Restrictions/Additional Instructions: Thank you for choosing [facility] for your healthcare needs today. Please realize this is an emergency room and that we are providing you with a medical screening exam and this may not be complete and all inclusive of all the testing and or work up that you may need to determine your ailment or severity of your illness. You have been screened and evaluated and felt safe for discharge. Health conditions do change or evolve sometimes and as such it is important that you follow up with your Primary Doctor to be re checked, 3-5 days is a general good time frame for follow up. You are always welcome to return to the ED for re assessment if your symptoms are worsening or you have new concerns Print Language: Sinhala Coding Level of Care Code ED Window Glass Installer for Marietta Cobb
[2024-06-27] MEDS: ondansetron 2 mg/ML SDV 2 mL 8 MG IVP (23:06)
[2024-06-27] MEDS: sodium chloride 0.9% 1,000 ML 999 ML IV (23:08)
[2024-06-27 23:21] LABS: Basophils # 0.1 10^3/uL (0.0-0.1); Basophils % 0.8 %; Eosinophils # 0.1 10^3/uL (0.0-0.8); Eosinophils % 0.9 %; Hematocrit 44.8 % (37-53); Lymphocytes # 2.1 10^3/uL (0.8-4.8); Lymphocytes % 27.1 %; Mean Corpuscular HGB Conc 34.2 g/dL (30-55); Mean Corpuscular Hemoglobin 30.3 pg (27-33); Mean Corpuscular Volume 88.7 fl (82-101); Mean Platelet Volume 9.4 fL (7.4-10.4); Monocytes # 0.5 10^3/uL (0.2-0.9); Monocytes % 6.1 %; Neutrophils # 4.96 10^3/uL (1.8-7.7); Neutrophils % 64.6 %; Nucleated Red Blood Cells % 0 %; Platelet Count 271 10^3/cmm (157-399); Red Blood Count 5.05 10^6/uL (3.85-5.65); Red Cell Distribution Width 12.2 % (12.1-15.1); White Blood Count 7.68 10^3/uL (3.29-11.43)
[2024-06-27 23:22] VITALS: BP 116/72; PULSE 65; RESP 18; O2SAT 98
[2024-06-27 23:40] LABS: Alanine Aminotransferase 19 U/L (0-41); Albumin Level 4.2 g/dL (3.5-5.2); Alkaline Phosphatase 75 U/L (40-130); Aspartate Amino Transferase 25 U/L (0-40); Blood Urea Nitrogen 19 mg/dL (6-20); Calcium 9.9 mg/dL (8.5-10.5); Carbon Dioxide 25 mmol/L (22-29); Chloride 98 mmol/L (98-107); Creatinine Clr Calc Pharmacy 106.6851; Globulin 2.5 g/dL (1.3-4.6); Glomerular Filtration Rate 92.5 mL/min (90-130); Glucose 236 mg/dL (65-115); Lipase 25 U/L (13-60); Osmolality Calculated 290 mOsm/kg (285-295); Sodium 135 mmol/L (136-145); Total Bilirubin 0.5 mg/dL (0.15-1.2); Total Protein 6.7 g/dL (6.6-8.7)
[2024-06-27 23:41] LABS: Lactic Sepsis W/Reflex 3.9 mmol/L (0.5-2.2)
[2024-06-27 23:43] LABS: Alcohol Level < 10 mg/dL (0-10)
[2024-06-27 23:48] LABS: Bilirubin Urine Negative (Negative); Blood Urine Negative (Negative); Glucose Urine UA Negative (Normal); Ketones Urine Negative (Negative); Leukocyte Esterase Urine Negative (Negative); Nitrate Urine Negative (Negative); Protein Urine 1+ (Negative); Specific Gravity, Urine 1.011 (1.005-1.030); Urine Appearance Turbid (CLEAR); Urine Color Yellow (Yellow)
[2024-06-27 23:57] LABS: Influenza A NEGATIVE (Negative); Influenza B NEGATIVE (Negative); Respiratory Syncytial Virus Ce NEGATIVE (Negative); SARS-CoV-2 PCR NEGATIVE (Negative)
[2024-06-28] VITALS: BP 112/69; PULSE 70; RESP 18; O2SAT 96
[2024-06-28 00:06] LABS: Bacteria Urine Trace /hpf; Hyaline Casts Urine 21.92 /lpf; RBC Urine 0-2 /hpf (0-2); Squamous Epithelial Cell Urine 0-5 /hpf (0-5)
[2024-06-28 00:18] LABS: WBC Urine 0-5 /hpf (0-5)
[2024-06-28 00:19] LABS: Amorphous Sediment Urine 2+ /hpf; Sperm Urine 1+ /hpf
[2024-06-28 00:24] VITALS: BP 112/69; PULSE 70; O2SAT 99
[2024-06-28 01:06] LABS: Reflex Lactate Order REFLEX LACTIC ORDERD
== END 2024-06-28 00:27 | disposition home or self-care (01) ==
PROVIDERS: Emergency Provider Emergency Medicine
DX: K52.9 Noninfective gastroenteritis and colitis, unspecified (principal); E86.0 Dehydration; Z11.52 Encounter for screening for COVID-19; Z72.0 Tobacco use
CPT/HCPCS: 36415; 80053; 80307; 81001; 83605; 83690; 85025; 86140; 87637; 96361; 96374; 99284; J2405; J7030

== ENCOUNTER 2024-10-01 10:04 | Emergency (ER) | payer SELFPAY ==
[2024-10-01 10:06] VITALS: BMI 22.1
--- OUTSIDE RECORDS SUMMARY | 2024-10-01 10:09 | XMS_ITS | Patient Health Record ---
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) Active confirmed Problem Anxiety (77784886) Anxiety (F41.9) Active confi rmed Problem Insomnia (997744274) Insomnia (G47.00) Active confirmed Problem Mood disorder (77849185) Mood disorder (F39) Active confirmed Problem Methamphetamine abuse (398411926) Methamphetamine abuse (F15.10) Active confirmed Problem Moderate recurrent major depression (01146758) Major depression, recurrent episode, moderate (296.32) 006 Active confirmed [id number] Plan Of Treatment No Information Insurance Providers Payer Name Payer Address Payer Phone Subscriber Number Group Number Insured Name Patient Relationship to Insured Coverage Start Date Coverage End Date Home [facility] Plan Medicaid Replacement [address] [place] [phone] [id number] ALEENA GALO Self - patient is the insured Ambetter [address] [place] [phone] [id number] ALEENA GALO Self - patient is the insured
--- NOTE | 2024-10-01 10:44 | W.ED.SKABFB ---
HPI - Skin/Abscess/Foreign Bdy General: Chief complaint: Skin/Abscess/Foreign Body Stated complaint: rash thinks it is staph Time Seen by Provider: 10/01/24 10:30 Source: patient Mode of arrival: ambulatory Limitations: no limitations History of Present Illness: This patient comes to the [facility] part today because he has had several months duration of intermittent skin lesions and and small skin abscesses that have been coming and going over various areas of the skin for at least 2 to 3 months. He states he has not had a prior diagnosis of MRSA. He states that no one he lives with has been similarly affected. He lives in a motor home on his grandparents property. He states he does not have any known insect bites or infestations. He relates that he drinks alcohol most days but not every day recently. He has used meth in the past but is not currently using meth. He does vape but does not smoke tobacco. Denies any other constitutional symptoms or complaints. He does take his prescribed medicines regularly. He is unaware of his last tetanus shot. MD complaint: rash and abscess/boil Context: none Associated symptoms: Deny chills, fever(s), nausea or vomiting Treatments prior to arrival: none Related Data Home Medications ?Medication ?Instructions ?Recorded ?Confirmed fluticasone propionate 50 1 spray intranasal DAILY 04/27/24 04/27/24 mcg/actuation nasal spray,suspension meloxicam 15 mg tablet 15 mg PO DAILY 04/27/24 04/27/24 Previous Rx's ?Medication ?Instructions ?Recorded ondansetron 8 mg disintegrating 8 mg PO Q6H #14 tabs 06/28/24 tablet doxycycline hyclate 100 mg capsule 100 mg PO BID 14 days #28 caps 10/01/24 mupirocin 2 % topical ointment 1 applic topical BID #15 grams 10/01/24 (Centany) Allergies Allergy/AdvReac Type Severity Reaction Status Date / Time tramadol Allergy ADR-Vomitin Verified 06/27/24 22:52 g Review of Systems Const: Denies: fever(s) or chills ENMT: Denies: throat pain, odynophagia, nasal discharge or nasal congestion Resp: Denies: productive cough or non-productive cough GI: Denies: nausea, vomiting or diarrhea : Denies: difficulty urinating or dysuria Musc: Denies: extremity pain or extremity swelling Skin/Breast: Reports: rash and non-healing lesions; Denies: pruritus Neuro: Denies: headache(s), numbness in extremities or weakness in extremities Psych: Reports: anxiety PFSH ED PFSH: Medical History No pertinent past medical history Surgical History No pertinent past surgical history Social History Smoking and tobacco/nicotine status: current every day tobacco/nicotine user Physical Exam Narrative: EXAM NARRATIVE: Patient appears to be in no acute distress but is slightly anxious and fidgety during our conversation but he does answer questions appropriately. Const: COMMON NORMALS: average body habitus, patient oriented x3 and alert GENERAL APPEARANCE: cooperative and anxious HENMT: COMMON NORMALS: Normal nasal mucous membranes and turbinates present and moist oral mucous membranes NOSE: Normal nasal mucous membranes and turbinates present Eye: COMMON NORMALS: Equal, round and reactive pupils present and conjunctivae normal CONJUNCTIVA: Yes conjunctivae normal PUPIL: Yes Equal, round and reactive pupils present Neck/C-Spine: COMMON NORMALS: full ROM Chest: COMMONS NORMALS: normal inspection of the chest Resp: COMMON NORMALS: normal respiratory effort and clear to auscultation bilaterally EFFORT & INSPECTION: Yes able to speak in complete sentences AUSCULTATION: clear to auscultation bilaterally Cardio: COMMON NORMALS: regular rate and regular rhythm RATE: regular rate RHYTHM: regular rhythm Back/Pelvis: COMMON NORMALS: thoracic and lumbar spine normal to inspection and thoraco-lumbar ROM normal Extremity: COMMON NORMALS: capillary refill normal and no joint enlargement Neuro: COMMON NORMALS: patient oriented x3, moves all extremities, no focal motor deficits and no sensory deficits noted SENSORIUM/ORIENTATION: Yes alert Psych: COMMON NORMALS: mental status grossly normal Skin: NARRATIVE SKIN EXAM: Patient has multiple lesions primarily macules that have been excoriated with a few scattered papules on the skin of both upper extremities as well as a few scattered on the trunk. There is minimal surrounding erythema. There is no current pointing abscess is noted on examination. There is no evidence of linear excoriation, burrowing, involvement of the belt line area or any other intertriginous areas. Is primarily on exposed skin and some skin under the close. There are not any vesicles or other lesions noted. Course Vital Signs: Vital signs: Vital Signs Oxygen Delivery Me thod Room Air 10/01/24 10:06 MDM - Skin/Abscess/Foreign Bdy Medicial Decision Making Patient presents with a history as noted in the HPI. Does have a history of MRSA in the past. Certainly suggest possible staph colonization with recurrent small skin abscesses. No evidence of significant cellulitis today or abscesses that need intervention and drain drainage at this time. Will plan on updating his tetanus, a course of doxycycline for 10 days, dexamethasone to help decrease some of the inflammatory response and as well as give him instructions on weekly bleach baths to reduce colonization. Again at this time no evidence of other emergency medical conditions that require further intervention other than noted. No radiology studies performed this visit Discharge Plan Discharge Patient Disposition: Home Clinical Impression: MRSA colonization Condition: Stable Prescriptions: New doxycycline hyclate 100 mg capsule 100 mg PO BID 14 Days Qty: 28 0RF mupirocin [Centany] 2 % ointment 1 applic topical BID Qty: 15 1RF Rx Instructions: apply to both nasal openings twice daily No Action meloxicam 15 mg Tablet 15 mg PO DAILY fluticasone propionate 50 mcg/actuation [place],Suspension 1 spray INTRANASAL DAILY Rx Instructions: administer into each nostril ondansetron 8 mg tablet,disintegrating 8 mg PO Q6H Qty: 14 0RF Rx Instructions: Take 1/2-1 tab every 6 hours as needed for nausea and vomiting Discharge Orders: Discharge ED (Routine); Ordered 10/01/24 Ordered By: Erik Márquez Discharge Diet: Usual diet Discharge Activity: Resume usual activity Patient Instructions: Opioid Safety, Pain Management, Patient Portal & Lela Instructions Activity Restrictions/Additional Instructions: As we discussed we are prescribing an antibiotic to take for the next 14 days. We have also prescribed an antibiotic ointment to use a small amount on each nasal passage twice daily for the next 2 weeks as well. Both of these to help reduce the bacteria colonization on your skin. We also recommend using a cup of household bleach in the bathtub and soaking in this bath water once weekly to help reduce your skin colonization. Follow-up with your regular doctor or if you have any worsening or concerning issues you may return to the emergency department at any time. Print Language: Gambian Coding Level of Care Code ED Garland Machine Operator for Marietta Cobb
[2024-10-01] MEDS: tetanus-dipt-pertussis 0.5 mL SDV IM (10:50)
[2024-10-01] MEDS: dexamethasone 10 mg/mL INJ IM (10:57)
== END 2024-10-01 11:10 | disposition home or self-care (01) ==
PROVIDERS: Emergency Provider Emergency Medicine
DX: A49.02 Methicillin resistant Staphylococcus aureus infection, unspecified site (principal); Z22.322 Carrier or suspected carrier of Methicillin resistant Staphylococcus aureus; Z72.0 Tobacco use
CPT/HCPCS: 90471; 90715; 96372; 99284; J1100

== ENCOUNTER 2024-10-10 09:51 | Emergency (ER) | payer SELFPAY ==
[2024-10-10 10:12] VITALS: BP 98/65; PULSE 60; RESP 16; TEMP 36.6; O2SAT 98; BMI 22.1
--- NOTE | 2024-10-10 12:16 | W.ED.EYEPROB ---
HPI - Eye Problem General: Chief complaint: Eye Problems Stated complaint: Metal in Right Eye Time Seen by Provider: 10/10/24 11:28 Source: patient Mode of arrival: ambulatory Limitations: no limitations History of Present Illness: 44-year-old male states that he was working yesterday and got a piece of metal in his right eye states that he has not been able to get the piece of metal out some slight blurry vision slight pain no redness no fever Associated symptoms: Denies fever(s), headache(s), nausea, neck pain or vomiting Related Data Home Medications ?Medication ?Instructions ?Recorded ?Confirmed fluticasone propionate 50 1 spray intranasal DAILY 04/27/24 04/27/24 mcg/actuation nasal spray,suspension meloxicam 15 mg tablet 15 mg PO DAILY 04/27/24 04/27/24 Previous Rx's ?Medication ?Instructions ?Recorded ondansetron 8 mg disintegrating 8 mg PO Q6H #14 tabs 06/28/24 tablet doxycycline hyclate 100 mg capsule 100 mg PO BID 14 days #28 caps 10/01/24 mupirocin 2 % topical ointment 1 applic topical BID #15 grams 10/01/24 (Centany) erythromycin 5 mg/gram (0.5 %) eye 1 applic ophthalmic (eye) Q6H 5 10/10/24 ointment (3.5 gram tube) days #3.5 grams Allergies Allergy/AdvReac Type Severity Reaction Status Date / Time tramadol Allergy ADR-Vomitin Verified 06/27/24 22:52 g Review of Systems Const: Denies: fever(s), chills, body aches or change in appetite Eyes: Reports: eye discomfort; Denies: blurry vision ENMT: Denies: throat pain or dental pain Card: Denies: chest pain Resp: Denies: dyspnea GI: Denies: abdominal pain, nausea, vomiting or diarrhea Musc: Denies: neck pain or back pain Skin/Breast: Denies: rash Neuro: Denies: headache(s) PFSH ED PFSH: Medical History No pertinent past medical history Surgical History No pertinent past surgical history Social History Smoking and tobacco/nicotine status: current every day tobacco/nicotine user Physical Exam Const: COMMON NORMALS: no acute distress, patient oriented x3 and healthy appearing HENMT: COMMON NORMALS: normocephalic and atraumatic HEAD & SCALP: normocephalic and atraumatic Eye: OTHER: Small piece of metal noted to right cornea Neck/C-Spine: COMMON NORMALS: full ROM and supple Chest: COMMONS NORMALS: normal inspection of the chest Resp: COMMON NORMALS: normal respiratory effort Cardio: COMMON NORMALS: regular rate RATE: regular rate Extremity: COMMON NORMALS: normal to inspection and full ROM Neuro: COMMON NORMALS: patient oriented x3, moves all extremities and no focal motor deficits Psych: COMMON NORMALS: mental status grossly normal, Normal thought process present and cooperative THOUGHT PROCESS: Normal thought process present Skin: COMMON NORMALS: no rashes or lesions noted and no wounds GENERAL SKIN EXAM: no rashes or lesions noted Procedures FB Removal Eye Time Out performed: Yes Location: eye (R) Topical anesthetic used: tetracaine Foreign body: metal Evidence of corneal penetration: No Technique: needle (20 gauge sheath) Procedure performed under: direct visualization with magnification Post-procedure medication: ophthalmic antibiotic Patient tolerated procedure: well Course Vital Signs: Vital signs: Vital Signs Temperature 97.8 F 10/10/24 10:12 Pulse Rate 60 10/10/24 10:12 Respiratory Rate 16 10/10/24 10:12 Blood Pressure 98/65 10/10/24 10:12 Pulse Oximetry 98 10/10/24 10:12 Oxygen Delivery Me thod Room Air 10/10/24 10:12 MDM - Eye Problem Medical Decision Making Patient presents for foreign body of right eye have a piece of metal in the right eye was able to remove it with the sheath of 20-gauge. No rust ring will place him on antibiotics follow-up with PCP return if worsening Medical Records I reviewed the patient's medical records. No radiology studies performed this visit Discharge Plan Discharge Patient Disposition: Home Clinical Impression: Foreign body in cornea, right eye, initial encounter Condition: Stable Prescriptions: New erythromycin 5 mg/gram (0.5 %) ointment 1 applic ophthalmic (eye) Q6H 5 Days Qty: 3.5 0RF No Action meloxicam 15 mg Tablet 15 mg PO DAILY fluticasone propionate 50 mcg/actuation [place],Suspension 1 spray INTRANASAL DAILY Rx Instructions: administer into each nostril ondansetron 8 mg tablet,disintegrating 8 mg PO Q6H Qty: 14 0RF Rx Instructions: Take 1/2-1 tab every 6 hours as needed for nausea and vomiting doxycycline hyclate 100 mg capsule 100 mg PO BID 14 Days Qty: 28 0RF mupirocin [Centany] 2 % ointment 1 applic topical BID Qty: 15 1RF Rx Instructions: apply to both nasal openings twice daily Discharge Orders: Discharge ED (Routine); Ordered 10/10/24 Ordered By: Tobias Mills Discharge Diet: Advance as tolerated Discharge Activity: Resume usual activity Patient Instructions: Eye Foreign Body (ED) Print Language: Citizen Of [place] Coding Level of Care Code ED Fermenter Helper for Marietta Cobb
== END 2024-10-10 12:41 | disposition home or self-care (01) ==
PROVIDERS: Emergency Provider Emergency Medicine
DX: T15.01XA Foreign body in cornea, right eye, initial encounter (principal); W44.E9XA Other non-magnetic metal objects entering into or through a natural orifice, initial encounter; Z72.0 Tobacco use
CPT/HCPCS: 99283; J9999

== ENCOUNTER 2024-11-02 18:10 | Inpatient (IN) | payer SELFPAY ==
[2024-11-02] VITALS (28 sets, daily range): BP systolic 127–158; BP diastolic 83–107; PULSE 67–112; RESP 9–23; TEMP 36.7–36.8; O2SAT 93–98
--- NOTE | 2024-11-02 18:28 | W.ED.PSYCHS ---
HPI - Psych General: Chief Complaint: Psychiatric Symptoms Stated Complaint: MHE Time Seen by Provider: 11/02/24 18:11 Source: patient and police Limitations: no limitations History of Present Illness: 44-year-old male is here with police had pulled him over for DUI they state that he made multiple suicidal statements to them with specific plans. Patient does admit that he did say suicidal states he is suicidal off and he is quite aggravated and aggressive here as well. Associated symptoms: Reports suicidal ideation Related Data Home Medications ?Medication ?Instructions ?Recorded ?Confirmed fluticasone propionate 50 1 spray intranasal DAILY 04/27/24 04/27/24 mcg/actuation nasal spray,suspension meloxicam 15 mg tablet 15 mg PO DAILY 04/27/24 04/27/24 Previous Rx's ?Medication ?Instructions ?Recorded ondansetron 8 mg disintegrating 8 mg PO Q6H #14 tabs 06/28/24 tablet mupirocin 2 % topical ointment 1 applic topical BID #15 grams 10/01/24 (Centany) Allergies Allergy/AdvReac Type Severity Reaction Status Date / Time tramadol Allergy ADR-Vomitin Verified 06/27/24 22:52 g Review of Systems Const: Denies: fever(s), chills, body aches or change in appetite ENMT: Denies: throat pain or dental pain Card: Denies: chest pain Resp: Denies: dyspnea GI: Denies: abdominal pain, nausea, vomiting or diarrhea Musc: Denies: neck pain or back pain Skin/Breast: Denies: rash Neuro: Denies: headache(s) Psych: Reports: suicidal ideation COUNT INCLUDES THE [facility] ED PFSH: Medical History No pertinent past medical history Surgical History No pertinent past surgical history Social History Smoking and tobacco/nicotine status: current every day tobacco/nicotine user Physical Exam Const: COMMON NORMALS: no acute distress, patient oriented x3 and healthy appearing HENMT: COMMON NORMALS: normocephalic and atraumatic HEAD & SCALP: normocephalic and atraumatic Neck/C-Spine: COMMON NORMALS: full ROM and supple Chest: COMMONS NORMALS: normal inspection of the chest Resp: COMMON NORMALS: normal respiratory effort Cardio: COMMON NORMALS: regular rate RATE: regular rate Neuro: COMMON NORMALS: patient oriented x3, moves all extremities and no focal motor deficits Psych: COMMON NORMALS: mental status grossly normal, Normal thought process present and cooperative ATTITUDE: Yes agitated and Yes aggressive THOUGHT PROCESS: Normal thought process present THOUGHT CONTENT: Yes Suicidality present Skin: COMMON NORMALS: no rashes or lesions noted and no wounds GENERAL SKIN EXAM: no rashes or lesions noted Face to Face: Restrn/Seclusion Events leading up to initiation: Verbalizing threat to self or others and Combative/Striking out at staff or others Evaluation of patient's immediate situation: Alert and oriented Patient reaction since intervention applied: Continued attempts/displays harmful behavior Recent labs reviewed: Yes Review of medications: Yes Patient's current medical/behavioral condition: No new concerns since last ROS Need for restraint or seclusion is: Continued Attending notified: Yes Course Reevaluation(s): Reevaluation #1: Patient became violent here is trying to attack staff was trying to hit his head against the wall did have to physically restrain him in the restraint bed and did give him ketamine for chemical sedation Time: 18:30 Vital Signs: Vital signs: Vital Signs Temperature 98.2 F 11/02/24 18:11 Pulse Rate 95 11/02/24 18:11 Respiratory Rate 20 H 11/02/24 18:11 Pulse Oximetry 98 11/02/24 18:11 Oxygen Delivery Me thod Room Air 11/02/24 18:11 MDM - Psych Medical Decision Making Patient presents here with suicidal ideations he is also intoxicated have to sedate him as he was violent here he is medically cleared at this time and will admit to the npu. Medical Records I reviewed the patient's medical records. Lab Data I reviewed the patient's lab results. 11/02/24 18:43 11/02/24 18:43 Laboratory Results WBC 7.04 10^3/uL (3.29-11.43) 11/02/24 18:43 RBC 4.81 10^6/uL (3.85-5.65) 11/02/24 18:43 Hgb 14.70 g/dL (11.27-16.99) 11/02/24 18:43 Hct 43.7 % (37-53) 11/02/24 18:43 MCV 90.9 fl (82-101) 11/02/24 18:43 MCH 30.6 pg (27-33) 11/02/24 18:43 MCHC 33.6 g/dL (30-55) 11/02/24 18:43 RDW 12.5 % (12.1-15.1) 11/02/24 18:43 Plt Count 246 10^3/cmm (157-399) 11/02/24 18:43 MPV 9.1 fL (7.4-10.4) 11/02/24 18:43 Neut % (Auto) 61.5 % 11/02/24 18:43 Lymph % (Auto) 29.5 % 11/02/24 18:43 [place] % (Auto) 6.3 % 11/02/24 18:43 Eos % (Auto) 1.7 % 11/02/24 18:43 Baso % (Auto) 0.9 % 11/02/24 18:43 Neut # (Auto) 4.33 10^3/uL (1.8-7.7) 11/02/24 18:43 Lymph # (Auto) 2.1 10^3/uL (0.8-4.8) 11/02/24 18:43 [place] # (Auto) 0.4 10^3/uL (0.2-0.9) 11/02/24 18:43 Eos # (Auto) 0.1 10^3/uL (0.0-0.8) 11/02/24 18:43 Baso # (Auto) 0.1 10^3/uL (0.0-0.1) 11/02/24 18:43 Nucleated RBC % (auto) 0 % 11/02/24 18:43 Nucleated RBCs # 0.0 /100WBC 11/02/24 18:43 Sodium 143 mmol/L (136-145) 11/02/24 18:43 Potassium 3.8 mmol/L (3.5-5.1) 11/02/24 18:43 Chloride 105 mmol/L (98-107) 11/02/24 18:43 Carbon Dioxide 23 mmol/L (22-29) 11/02/24 18:43 Anion Gap 18.8 (5-19) 11/02/24 18:43 BUN 17 mg/dL (6-20) 11/02/24 18:43 Creatinine 0.8 mg/dL (0.7-1.2) 11/02/24 18:43 GFR Calculation 105.5 mL/min (90-130) 11/02/24 18:43 Glucose 99 mg/dL (65-115) 11/02/24 18:43 Calculated Osmolality 298 mOsm/kg (285-295) H 11/02/24 18:43 Calcium 9.0 mg/dL (8.5-10.5) 11/02/24 18:43 Total Bilirubin 0.3 mg/dL (0.15-1.2) 11/02/24 18:43 AST 20 U/L (0-40) 11/02/24 18:43 ALT 17 U/L (0-41) 11/02/24 18:43 Alkaline Phosphatase 80 U/L (40-130) 11/02/24 18:43 Total Protein 7.0 g/dL (6.6-8.7) 11/02/24 18:43 Albumin 4.5 g/dL (3.5-5.2) 11/02/24 18:43 Globulin 2.5 g/dL (1.3-4.6) 11/02/24 18:43 Salicylates < 0.3 mg/dL (3-10) L 11/02/24 18:43 Acetaminophen < 5.0 ug/mL (10-30) L 11/02/24 18:43 Ethyl Alcohol 203 mg/dL (0-10) H 11/02/24 18:43 No radiology studies performed this visit Discharge Plan Discharge Patient Disposition: Admitted As Inpatient Admit Provider: Dontae eKller Clinical Impression: Suicidal ideation, Alcohol abuse Condition: Stable Coding Level of Care Code ED Credit Administration Manager for Marietta Cobb
--- NOTE | 2024-11-02 18:31 | PC.NURSE ---
PT placed in 4 point restraints. PT began banging the back of his head on the wall, clenching fist, threatening, and trying to get violent with staff. multiple staff members tried to verbally de-escalate PT. PT continued to get more aggressive.
[2024-11-02] MEDS: ketamine 100 mg/mL Inj 5 mL 300 MG IM (18:41)
[2024-11-02 18:49] LABS: Hematocrit 43.7 % (37-53); Hemoglobin 14.70 g/dL (11.27-16.99); Mean Corpuscular HGB Conc 33.6 g/dL (30-55); Mean Corpuscular Hemoglobin 30.6 pg (27-33); Mean Corpuscular Volume 90.9 fl (82-101); Nucleated Red Blood Cells % 0 %; Platelet Count 246 10^3/cmm (157-399); Red Blood Count 4.81 10^6/uL (3.85-5.65); White Blood Count 7.04 10^3/uL (3.29-11.43)
--- NOTE | 2024-11-02 18:54 | PC.NURSE ---
This nurse attempted to read involuntary 96 hour hold rights to patient. Patient is currently in four point restraints due to violent behaviors towards staff and received 300 mg of katamine IV. Patient is unable to understand involuntary 96 hour hold rights at this time. Will re-attempt to read rights to patient when is more awake and alert. Patient has normal respirations at this time and his oxygen saturation is at 96% on room air.
[2024-11-02 19:07] LABS: Alanine Aminotransferase 17 U/L (0-41); Albumin Level 4.5 g/dL (3.5-5.2); Alcohol Level 203 mg/dL (0-10); Alkaline Phosphatase 80 U/L (40-130); Aspartate Amino Transferase 20 U/L (0-40); Blood Urea Nitrogen 17 mg/dL (6-20); Calcium 9.0 mg/dL (8.5-10.5); Carbon Dioxide 23 mmol/L (22-29); Chloride 105 mmol/L (98-107); Creatinine Clr Calc Pharmacy 120.3238; Globulin 2.5 g/dL (1.3-4.6); Glucose 99 mg/dL (65-115); Osmolality Calculated 298 mOsm/kg (285-295); Sodium 143 mmol/L (136-145); Total Protein 7.0 g/dL (6.6-8.7)
[2024-11-02 19:17] LABS: Acetaminophen < 5.0 ug/mL (10-30); Salicylate < 0.3 mg/dL (3-10)
[2024-11-02 19:18] LABS: Anion Gap 18.8 (5-19); Potassium 3.8 mmol/L (3.5-5.1)
[2024-11-02] MEDS: LORazepam 1 MG/0.5 ML injection 2 MG IM (21:47)
[2024-11-02] MEDS: haloperidol inj 5 mg/mL INJ 1 mL IM (21:47)
[2024-11-02] MEDS: diphenhydrAMINE 50 mg/mL SDV 1mL IM (21:47)
--- NOTE | 2024-11-02 23:04 | PC.NURSE ---
pt arrival to unit pt arrived to unit withed nurse and security. pt was boisterous at the time of arrival. pt moved from wheelchair to bed with help from staff. pt unhappy but cooperative with change out from paper scrubs to unit scrubs. pt made several comments about 'killing everyone here', and how he 'would blow his head off' staff with security assisted pt back to bed several times. pt was redirectable to a point, pt stood up and continued to posture at nursing staff while screaming. pt then swung his pillow at rk from security. A code 10 was called at some point during this interaction. pt attempted to hit staff with the pillow again. pillow was taken away and pt was partially restrained. at this time the decision was made to fully restrain pt to wait for meds. meds given with multiple unit staff assistance. after staff had returned to their units this nurse was continuously with pt to prevent falls until medication was effective. pt got up out of his bed yelling about calling his grandpa and going home and began punching the wall. this nurse yelled for assistance and pt sat back on the bed. multiple staff stayed in room until pt was resting appropriately.
[2024-11-03 00:15] VITALS: PULSE 67; RESP 16; O2SAT 95
[2024-11-03 04:00] VITALS: BP 111/74; PULSE 65; RESP 16; TEMP 37.2; O2SAT 100
[2024-11-03 08:00] VITALS: BP 94/58; PULSE 65; RESP 15; O2SAT 99
[2024-11-03 12:00] VITALS: BP 101/73; PULSE 66; RESP 16; O2SAT 99
[2024-11-03 16:00] VITALS: BP 94/56; PULSE 58; RESP 16; O2SAT 100
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
[2024-11-03 20:00] VITALS: BP 124/88; PULSE 89; RESP 18; O2SAT 97
[2024-11-04] VITALS: BP 102/65; PULSE 79; RESP 18; TEMP 36.5; O2SAT 99
[2024-11-04 04:00] VITALS: BP 102/69; PULSE 66; RESP 18; TEMP 36.5; O2SAT 96
[2024-11-04 08:00] VITALS: BP 95/73; PULSE 80; RESP 16; TEMP 36.6; O2SAT 99
[2024-11-04 12:00] VITALS: BP 111/77; PULSE 73; RESP 17; TEMP 36.6; O2SAT 96
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
[2024-11-04 16:01] VITALS: BP 111/77; PULSE 73; RESP 17; TEMP 36.6; O2SAT 96
== END 2024-11-04 16:16 | disposition home or self-care (01) | DRG 897 ==
LOC: ER 19:04 → NP 19:15
PROVIDERS: Admitting Provider Psychiatry & Neurology Psychiatry; Emergency Provider Emergency Medicine; Visit Provider Psychiatry & Neurology Psychiatry
DX: F10.10 Alcohol abuse, uncomplicated (principal); R45.851 Suicidal ideations; Y90.7 Blood alcohol level of 200-239 mg/100 ml; F15.10 Other stimulant abuse, uncomplicated
CPT/HCPCS: 36415; 80053; 80307; 85025; 96372; 97165; 99285; J1200; J1630; J2060; J3490